=== PATIENT | male | born 1960 | race Caucasian/White ===

== ENCOUNTER → 2016-08-13 | Outpatient (CLI) | payer OTHER ==
--- NOTE | 2016-08-13 11:06 | CT ---
EXAMINATION TYPE: CT abdomen wo/w con DATE OF EXAM: 08/13/2016 7:56 AM COMPARISON: 12/20/2015 INDICATION: portal vein thrombosis DLP: 650.7 mGycm, Automated exposure control for dose reduction was used. CONTRAST: 100 mL of Omnipaque 300. Study performed with Oral Contrast TECHNIQUE: Axial images were obtained from above the diaphragm to the pubic rami in the axial plane a t 5 mm thick sections. Reconstructed images are reviewed on the computer in the coronal plane. FINDINGS: Limited CT sections are obtained the lung bases. The lung bases are clear. Small hiatal hernia is p resent. CT ABDOMEN: Thrombus within the portal vein is again evident. On delayed images contrast does pass ar ound this thrombus. The splenic vein appears thrombosed. Thrombus without obstruction appears to be w ithin the mesenteric vein. Liver: Normal Spleen: Markedly enlarged measuring 22 cm in craniocaudal dimension. This is stable. Pancreas: Normal Adrenal glands: The adrenal glands are normal. Gallbladder: Normal Kidneys: No masses are evident. No hydronephrosis is present. No cysts are present. Delayed images were obtained through the kidneys, which remain unremarkable. Aorta: Vascular calcification is within the aorta. Inferior vena cava: Normal. CT PELVIS: There is thickening of the ascending colon. Correlate for colitis. Incomplete distention with contras t. There are loops of bowel which are incompletely distended or lack oral contrast limiting their nehemiah luation. What appears to be the appendix is normal. IMPRESSIONS: 1. Portal vein partial thrombosis without complete obstruction. Findings are similar to December 2015. 2. Marked splenomegaly. 3. Small hiatal hernia. 4. Suspected colitis ascending colon. Mesenteric ischemia from venous thrombosis could be considered although the findings are similar to previous exam.
== END | disposition home or self-care (01) ==
LOC: RADCTMAIN 07:28
PROVIDERS: ATTEND Internal Medicine Hematology & Oncology
DX: I81 Portal vein thrombosis (principal)
CPT/HCPCS: 74170; Q9967

== ENCOUNTER → 2019-03-12 | Outpatient (CLI) | payer MEDICARE ==
[2019-03-12 16:13] LABS: Basophils % (A) 1 %; Eosinophils # (A) 0.1 k/uL (0-0.7); Eosinophils % (A) 2 %; HCT 33.6 % (39.0-53.0); HGB 10.4 gm/dL (13.0-17.5); Lymphocytes # (A) 0.3 k/uL (1.0-4.8); Lymphocytes % (A) 10 %; MCH 29.1 pg (25.0-35.0); MCHC 31.1 g/dL (31.0-37.0); MCV 93.7 fL (80.0-100.0); Mean Platelet Volume 7.3; Monocytes # (A) 0.3 k/uL (0-1.0); Monocytes % (A) 9 %; Neutrophils # (A) 2.3 k/uL (1.3-7.7); Neutrophils % (A) 75 %; RBC 3.58 m/uL (4.30-5.90); RDW 14.7 % (11.5-15.5); WBC 3.1 k/uL (3.8-10.6)
[2019-03-12 16:58] LABS: Platelet Count 42 k/uL (150-450)
[2019-03-13 01:26] LABS: African American GFR (CKD) 94.4 (60.0-200.0); Albumin 4.2 g/dL (3.80-4.90); Albumin/Globulin Ratio 1.5 (1.60-3.17); Anion Gap 9.9 mmol/L (4.00-12.00); Calcium 8.9 mg/dL (8.7-10.3); Carbon Dioxide 27.1 mmol/L (21.6-31.8); Globulin 2.8 g/dL (1.6-3.3); Potassium 4.7 mmol/L (3.5-5.5); Total Bilirubin 1.7 mg/dL (0.2-1.2)
== END | disposition home or self-care (01) ==
LOC: LABWHC1 14:27
PROVIDERS: ATTEND Internal Medicine Gastroenterology
DX: K70.30 Alcoholic cirrhosis of liver without ascites (principal); Z76.82 Awaiting organ transplant status
CPT/HCPCS: 36415; 80053; 82105; 85025

== ENCOUNTER → 2019-04-02 | Outpatient (CLI) | payer MEDICARE | END | disposition home or self-care (01) | LOC: LABWHC1 14:23 | PROVIDERS: ATTEND Internal Medicine Gastroenterology | DX: K74.60 Unspecified cirrhosis of liver (principal); K76.9 Liver disease, unspecified; Z76.82 Awaiting organ transplant status | CPT/HCPCS: 36415; 82105 ==

== ENCOUNTER 2022-06-15 09:02 | Inpatient (IN) | payer MEDICARE ==
[2022-06-15 09:19] LABS: Glucose,Whole Blood 125 mg/dL (70-110)
--- NOTE | 2022-06-15 09:24 | ED ---
Altered Mental Status HPI - General Chief Complaint: Altered Mental Status Stated Complaint: AMS,Dizziness Time Seen by Provider: 06/15/22 09:04 Source: family, EMS Mode of arrival: EMS Limitations: altered mental status - History of Present Illness Initial Comments: 61-year-old male patient with known history of alcohol abuse and chronic liver disease presents to the emergency department for evaluation of altered mental status. Family called EMS and they found him lying on the floor not responding appropriately. Patient is able to provide no history. EMS personnel state that he has been basically unresponsive since they picked him up. Family member at home states that he had blood drawn recently and was found to be anemic. They are unsure if he had any falls or injuries. Was able to obtain more history from . He has been showing signs of confusion over the last year. States over the last 3-4 days it has been significantly worse. He did have a fall out of bed this morning. He was not responding appropriately to her so she called 911. He has had evaluation at [facility] with Dr. Cordova and has been evaluated for Liver transplant and on the transplant list in the past. is not sure if he is on the list at this time. states his last alcohol use was 4-5 years ago. - Related Data Home Medications Medication Instructions Recorded Confirmed Pantoprazole Sodium 40 mg PO DAILY 03/30/14 11/03/19 Propranolol [Inderal] 5 mg PO TID 03/30/14 11/03/19 Spironolactone [Aldactone] 50 mg PO BID 03/30/14 11/03/19 buPROPion HCL [Wellbutrin XL] 300 mg PO DAILY 03/06/16 11/03/19 ALPRAZolam [Xanax] 1 PO TID 11/03/19 Lipase/Protease/Amylase [Creon Dr 2 PO TID 11/03/19 24,000 Units Capsule] Rifaximin [Xifaxan] 1 tab PO DAILY 11/03/19 11/03/19 Allergies Allergy/AdvReac Type Severity Reaction Status Date / Time Iodinated Contrast Media Allergy Swelling Verified 11/03/19 11:53 [Iodinated Contrast Media - IV Dye] shellfish derived [Shrimp] Allergy Unknown Verified 11/03/19 11:53 Review of Systems ROS Statement: Those systems with pertinent positive or pertinent negative responses have been documented in the HPI. ROS Other: All systems not noted in ROS Statement are negative. Past Medical History Past Medical History: GERD/Reflux, Liver Disease Additional Past Medical History / Comment(s): 12/20/15 Pt was admitted to [facility] ICU and found to have acute mesenteric ischemia and thrombosis of R hemicolon-he also had massive splenomegaly-he was transfered to [facility] and he states he is now on the liver transplant list. Other hx: anemia, thrombocytopenia, cirrhosis, hepatitis c stated was tx 3.5 years ago, esophageal varices with surgery, chronic diarrhea. History of Any Multi-Drug Resistant Organisms: None Reported Past Surgical History: Hernia Repair, Tonsillectomy Additional Past Surgical History / Comment(s): EGD's, esophageal banding(d/t esophageal varacies), cherelle inguinal hernia, colonoscopy-polyps removed were benign. Past Anesthesia/Blood Transfusion Reactions: No Reported Reaction Past Psychological History: Anxiety Smoking Status: Unknown if ever smoked Past Alcohol Use History: Abuse Past Drug Use History: Marijuana - Past Family History Mother Family Medical History: No Reported History Additional Family Medical History / Comment(s): Mother at the age of 92 yrs. Father Additional Family Medical History / Comment(s): smoked/drank had lung disease. Father at the age of 78yrs. General Exam Limitations: altered mental status General appearance: obtunded Head exam: Present: atraumatic, normocephalic, normal inspection Eye exam: Present: normal appearance, PERRL, EOMI, scleral icterus (Bilateral). Absent: conjunctival injection, periorbital swelling Neck exam: Present: normal inspection Respiratory exam: Present: normal lung sounds bilaterally. Absent: respiratory distress, wheezes, rales, rhonchi, stridor Cardiovascular Exam: Present: regular rate, normal rhythm, normal heart sounds. Absent: systolic murmur, diastolic murmur, rubs, gallop, clicks GI/Abdominal exam: Present: soft, normal bowel sounds. Absent: distended, tenderness, guarding, rebound, rigid Neurological exam: Present: altered, other (Patient not responding to verbal stimuli. Does respond to painful stimuli but words are unintelligible. ) Psychiatric exam: Present: normal affect, normal mood Skin exam: Present: warm, dry, intact, normal color. Absent: rash Course Vital Signs 06/15/22 06/15/2206/15/23 09:05 09:37 10:54 Temperature 97.5 F L Pulse Rate 65 64 70 Respiratory 16 18 18 Rate Blood Pressure 122/67 120/71 101/65 O2 Sat by Pulse 96 97 97 Oximetry - Reevaluation(s) Reevaluation #1: 06/15/22 10:30 Called [facility] transfer center to arrange transfer. Transfer required due to need for gastroenterology/hepatology and higher level of care. [facility] for a [facility]. Awaiting return call from [facility] physician. Reevaluation #2: 06/15/22 11:15 Dayton Craig called back, spoke to Dr. Ramos, he did accept the transfer to general medical unit. [facility] will call back with updates regarding bed assignment. Reevaluation #3: 06/15/22 14:[address] Wilson for consult and rounding while patient is holding in ER for transfer. Dr. Wilson believes the patient can be managed satisfactorily here in this hospital without gastroenterology coverage. He did recommend ICU admission and critical care consult. Dr. Wilson was consulted. He was down to evaluate the patient. He agrees if the patient cannot be transferred to [facility] today he would be better served in our ICU receiving treatment. [facility] would more than likely be a few days due to patient's COVID + status. Patient will remain here and be admitted to our ICU. Family is agreeable. Medical Decision Making - Medical Decision Making Was pt. sent in by a medical professional or institution (, PA, DEVELOPMENT OFFICER, urgent care, hospital, or usp...) When possible be specific @ -[No] Did you speak to anyone other than the patient for history (EMS, parent, family, police, friend...)? What history was obtained from this source @ -, EMS personnel. Obtained history of present illness previously documented. Did you review nursing and triage notes (agree or disagree)? Why? @ -[I reviewed and agree with nursing and triage notes] Were old charts reviewed (outside hosp., previous admission, EMS record, old EKG, old radiological studies, urgent care reports/EKG's, usp records)? Report findings @ -Reviewed labs obtained 06/11/22 Differential Diagnosis (chest pain, altered mental status, abdominal pain women, abdominal pain men, vaginal bleeding, weakness, fever, dyspnea, syncope, headache, dizziness, GI bleed, back pain, seizure, CVA, palpatations, mental health)? @ -Differential Altered Mental Status: Hypoglycemia, DKA, hypercapnia, ETOH, overdose, CO poisoning, trauma, myxedema coma, HTN encephalopathy, infection, encephalitis, psychosis, intercranial hemorrhage, hepatic encephalopathy, meningitis, CVA, this is not meant to be an all-inclusive list EKG interpreted by me (3pts min.). @ -[As above] X-rays interpreted by me (1pt min.). @ -[None done] CT interpreted by me (1pt min.). @ -As above. U/S interpreted by me (1pt. min.). @ -[None done] What testing was considered but not performed or refused? (CT, X-rays, U/S, labs)? Why? @ -[None] What meds were considered but not given or refused? Why? @ -[None] Did you discuss the management of the patient with other professionals (professionals i.e. , PA, DEVELOPMENT OFFICER, lab, RT, psych nurse, social sciences department chair, tax lawyer, teacher, correction officer head, rn case management)? Give summary @ -Discussed with my attending Dr. Jo. Dayton Craig accepting physician Dr. Ramos. [facility]. [facility], and Dr. Wilson account leader. Was smoking cessation discussed for >3mins.? @ -[No] Was critical care preformed (if so, how long)? @ -Yes, review of labs, evaluation of patient, vital signs, EKG. Consult with multiple members of health care team including multiple physicians and transfer team. Were there social determinants of health that impacted care today? How? (Homelessness, low income, unemployed, alcoholism, drug addiction, transportation, low edu. Level, literacy, decrease access to med. care, halfway, rehab)? @ -[No] Was there de-escalation of care discussed even if they declined (Discuss DNR or withdrawal of care, Hospice)? DNR status @ -[No] What co-morbidities impacted this encounter? (DM, HTN, Smoking, COPD, CAD, Cancer, CVA, ARF, Chemo, Hep., AIDS, mental health diagnosis, sleep apnea, mor bid obesity)? @ -Hepatitis C, Liver disease, Alcohol dependence in remission. Was patient admitted / discharged? Hospital course, mention meds given and route, prescriptions, significant lab abnormalities, going to OR and other pertinent info. @ 61-year-old male patient presented to the emergency via EMS for altered mental status. Patient does have history significant for alcoholic liver disease, last drink 4-5 years ago. Physical examination did reveal scleral icterus. Altered mental status, responsive to painful stimuli only. Labs reviewed and did reveal INR 1.6, ammonia 266, white blood cell count 1.4. He did test positive for Covid. Symptoms are consistent with hepatic encephalopathy. Patient was given 200gm lactulose via retention enema. We do not have gastroenterology coverage at this time. Patient does see Dr. Cordova at [facility] and has been previously evaluated by their transplant team. Transfer has been initiated. Update: Spoke to Dr. Wilson for consult and rounding while patient is holding in ER for transfer. Dr. Wilson believes the patient can be managed satisfactorily here in this hospital without gastroenterology coverage. He did recommend ICU admission and critical care consult. Dr. Wilson was consulted. He was down to evaluate the patient. He agrees if the patient cannot be transferred to [facility] today he would be better served in our ICU receiving treatment. [facility] states it would more than likely be a few days due to patient's COVID + status. Patient will remain here and be admitted to our ICU. Family is agreeable. Undiagnosed new problem with uncertain prognosis? @ -[No] Drug Therapy requiring intensive monitoring for toxicity (Heparin, Nitro, Insulin, Cardizem)? @ -[No] Were any procedures done? @ -Retention enema administered by RN. Diagnosis/symptom? @ -Hepatic Encephalopathy, COVID-19 infection, Altered Mental Status. Acute, or Chronic, or Acute on Chronic? @ - Acute Uncomplicated (without systemic symptoms) or Complicated (systemic symptoms)? @ -Complicated Side effects of treatment? @ -[No] Exacerbation, Progression, or Severe Exacerbation? @ -[No] Poses a threat to life or bodily function? How? (Chest pain, USA, PA, pneumonia, PE, COPD, DKA, ARF, appy, cholecystitis, CVA, Diverticulitis, Homicidal, Suicidal, threat to staff... and all critical care pts) @ -Yes. Encephalopathy. - Lab Data Result diagrams: 06/15/22 09:14 06/15/22 09:14 Lab Results 06/15/22 06/15/22 06/15/22 Range/Units 09:14 09:14 09:14 WBC 1.4 L* (3.8-10.6) k/uL RBC 2.90 L (4.30-5.90) m/uL Hgb 9.7 L (13.0-17.5) gm/dL Hct 27.9 L (39.0-53.0) % MCV 96.1 (80.0-100.0) fL MCH 33.3 (25.0-35.0) pg MCHC 34.7 (31.0-37.0) g/dL RDW 14.5 (11.5-15.5) % Plt Count 20 L (150-450) k/uL MPV 9.1 Neutrophils % 63 % Lymphocytes % 23 % Monocytes % 8 % Eosinophils % 2 % Basophils % 1 % Neutrophils # 0.9 L (1.3-7.7) k/uL Lymphocytes # 0.3 L (1.0-4.8) k/uL Monocytes # 0.1 (0-1.0) k/uL Eosinophils # 0.0 (0-0.7) k/uL Basophils # 0.0 (0-0.2) k/uL Manual Slide Review Performed Poikilocytosis Slight PT 15.9 H (9.0-12.0) sec INR 1.6 H (<1.2) APTT 30.8 H (22.0-30.0) sec Sodium 138 (137-145) mmol/L Potassium 3.8 (3.5-5.1) mmol/L Chloride 107 (98-107) mmol/L Carbon Dioxide 28 (22-30) mmol/L Anion Gap 3 mmol/L BUN 19 (9-20) mg/dL Creatinine 0.82 (0.66-1.25) mg/dL Est GFR (CKD-EPI)AfAm >90 (>60 ml/min/1.73 sqM) Est GFR (CKD-EPI)NonAf >90 (>60 ml/min/1.73 sqM) Glucose 119 H (74-99) mg/dL POC Glucose (mg/dL) (70-110) mg/dL POC Glu Gyro Compass Tester ID Plasma Lactic Acid Devang (0.7-2.0) mmol/L Calcium 7.4 L (8.4-10.2) mg/dL Total Bilirubin 2.2 H (0.2-1.3) mg/dL AST 29 (17-59) U/L ALT 26 (4-49) U/L Alkaline Phosphatase 99 (38-126) U/L Ammonia (<30) umol/L Troponin I (0.000-0.034) ng/mL Total Protein 5.9 L (6.3-8.2) g/dL Albumin 2.8 L (3.5-5.0) g/dL Urine Color Urine Appearance (Clear) Urine pH (5.0-8.0) Ur Specific Elma (1.001-1.035) Urine Protein (Negative) Urine Glucose (UA) (Negative) Urine Ketones (Negative) Urine Blood (Negative) Urine Nitrite (Negative) Urine Bilirubin (Negative) Urine Urobilinogen (<2.0) mg/dL Ur Leukocyte Esterase (Negative) Urine Opiates Screen (NotDetected) Ur Oxycodone Screen (NotDetected) Urine Methadone Screen (NotDetected) Ur Propoxyphene Screen (NotDetected) Ur Barbiturates Screen (NotDetected) U Tricyclic Antidepress (NotDetected) Ur Phencyclidine Scrn (NotDetected) Ur Amphetamines Screen (NotDetected) U Methamphetamines Scrn (NotDetected) U Benzodiazepines Scrn (NotDetected) Urine Cocaine Screen (NotDetected) U Marijuana (THC) Screen (NotDetected) Serum Alcohol <10 mg/dL Coronavirus (PCR) (Not Detectd) 06/15/22 06/15/22 06/15/22 Range/Units 09:14 09:14 09:14 WBC (3.8-10.6) k/uL RBC (4.30-5.90) m/uL Hgb (13.0-17.5) gm/dL Hct (39.0-53.0) % MCV (80.0-100.0) fL MCH (25.0-35.0) pg MCHC (31.0-37.0) g/dL RDW (11.5-15.5) % Plt Count (150-450) k/uL MPV Neutrophils % % Lymphocytes % % Monocytes % % Eosinophils % % Basophils % % Neutrophils # (1.3-7.7) k/uL Lymphocytes # (1.0-4.8) k/uL Monocytes # (0-1.0) k/uL Eosinophils # (0-0.7) k/uL Basophils # (0-0.2) k/uL Manual Slide Review Poikilocytosis PT (9.0-12.0) sec INR (<1.2) APTT (22.0-30.0) sec Sodium (137-145) mmol/L Potassium (3.5-5.1) mmol/L Chloride (98-107) mmol/L Carbon Dioxide (22-30) mmol/L Anion Gap mmol/L BUN (9-20) mg/dL Creatinine (0.66-1.25) mg/dL Est GFR (CKD-EPI)AfAm (>60 ml/min/1.73 sqM) Est GFR (CKD-EPI)NonAf (>60 ml/min/1.73 sqM) Glucose (74-99) mg/dL POC Glucose (mg/dL) (70-110) mg/dL POC Glu Gyro Compass Tester ID Plasma Lactic Acid Devang 1.7 (0.7-2.0) mmol/L Calcium (8.4-10.2) mg/dL Total Bilirubin (0.2-1.3) mg/dL AST (17-59) U/L ALT (4-49) U/L Alkaline Phosphatase (38-126) U/L Ammonia 266 H (<30) umol/L Troponin I <0.012 (0.000-0.034) ng/mL Total Protein (6.3-8.2) g/dL Albumin (3.5-5.0) g/dL Urine Color Urine Appearance (Clear) Urine pH (5.0-8.0) Ur Specific Elma (1.001-1.035) Urine Protein (Negative) Urine Glucose (UA) (Negative) Urine Ketones (Negative) Urine Blood (Negative) Urine Nitrite (Negative) Urine Bilirubin (Negative) Urine Urobilinogen (<2.0) mg/dL Ur Leukocyte Esterase (Negative) Urine Opiates Screen (NotDetected) Ur Oxycodone Screen (NotDetected) Urine Methadone Screen (NotDetected) Ur Propoxyphene Screen (NotDetected) Ur Barbiturates Screen (NotDetected) U Tricyclic Antidepress (NotDetected) Ur Phencyclidine Scrn (NotDetected) Ur Amphetamines Screen (NotDetected) U Methamphetamines Scrn (NotDetected) U Benzodiazepines Scrn (NotDetected) Urine Cocaine Screen (NotDetected) U Marijuana (THC) Screen (NotDetected) Serum Alcohol mg/dL Coronavirus (PCR) (Not Detectd) 06/15/22 06/15/22 06/15/22 Range/Units 09:17 09:17 10:54 WBC (3.8-10.6) k/uL RBC (4.30-5.90) m/uL Hgb (13.0-17.5) gm/dL Hct (39.0-53.0) % MCV (80.0-100.0) fL MCH (25.0-35.0) pg MCHC (31.0-37.0) g/dL RDW (11.5-15.5) % Plt Count (150-450) k/uL MPV Neutrophils % % Lymphocytes % % Monocytes % % Eosinophils % % Basophils % % Neutrophils # (1.3-7.7) k/uL Lymphocytes # (1.0-4.8) k/uL Monocytes # (0-1.0) k/uL Eosinophils # (0-0.7) k/uL Basophils # (0-0.2) k/uL Manual Slide Review Poikilocytosis PT (9.0-12.0) sec INR (<1.2) APTT (22.0-30.0) sec Sodium (137-145) mmol/L Potassium (3.5-5.1) mmol/L Chloride (98-107) mmol/L Carbon Dioxide (22-30) mmol/L Anion Gap mmol/L BUN (9-20) mg/dL Creatinine (0.66-1.25) mg/dL Est GFR (CKD-EPI)AfAm (>60 ml/min/1.73 sqM) Est GFR (CKD-EPI)NonAf (>60 ml/min/1.73 sqM) Glucose (74-99) mg/dL POC Glucose (mg/dL) 125 H (70-110) mg/dL POC Glu Gyro Compass Tester ID Dyllan Tierney Plasma Lactic Acid Devang (0.7-2.0) mmol/L Calcium (8.4-10.2) mg/dL Total Bilirubin (0.2-1.3) mg/dL AST (17-59) U/L ALT (4-49) U/L Alkaline Phosphatase (38-126) U/L Ammonia (<30) umol/L Troponin I (0.000-0.034) ng/mL Total Protein (6.3-8.2) g/dL Albumin (3.5-5.0) g/dL Urine Color Yellow Urine Appearance Clear (Clear) Urine pH 6.5 (5.0-8.0) Ur Specific Elma 1.014 (1.001-1.035) Urine Protein Negative (Negative) Urine Glucose (UA) Negative (Negative) Urine Ketones Negative (Negative) Urine Blood Negative (Negative) Urine Nitrite Negative (Negative) Urine Bilirubin Negative (Negative) Urine Urobilinogen >12.0 (<2.0) mg/dL Ur Leukocyte Esterase Negative (Negative) Urine Opiates Screen Not Detected (NotDetected) Ur Oxycodone Screen Not Detected (NotDetected) Urine Methadone Screen Not Detected (NotDetected) Ur Propoxyphene Screen Not Detected (NotDetected) Ur Barbiturates Screen Not Detected (NotDetected) U Tricyclic Antidepress Not Detected (NotDetected) Ur Phencyclidine Scrn Not Detected (NotDetected) Ur Amphetamines Screen Not Detected (NotDetected) U Methamphetamines Scrn Not Detected (NotDetected) U Benzodiazepines Scrn Detected H (NotDetected) Urine Cocaine Screen Not Detected (NotDetected) U Marijuana (THC) Screen Not Detected (NotDetected) Serum Alcohol mg/dL Coronavirus (PCR) Detected A (Not Detectd) - EKG Data -: EKG Interpreted by Me EKG Comments: EKG was obtained at 0906 shows sinus rhythm with right bundle branch block, ventricular rate is 60, MT interval 164, QRS duration 165, QTc 528, QTC 529. - Radiology Data Radiology results: report reviewed, image reviewed CT brain and C-spine was obtained. Report was reviewed in its entirety. Impression by Dr. Kirkland shows no acute intracranial process. No evidence of cervical spine fracture. Mild multilevel degenerative disc disease. Predominantly right-sided paranasal sinus disease. Disposition Clinical Impression: Hepatic encephalopathy, COVID-19, Altered mental status Disposition: ADMITTED IP TO THIS [facility] Condition: Serious Referrals: None,Stated [REFERRING] - 1-2 days Decision to Admit Reason: Admit from EC Decision Date: 06/15/22 Decision Time: 14:47
[2022-06-15 09:40] LABS: ALT 26 U/L (4-49); AST 29 U/L (17-59); African American GFR (CKD) >90 (>60 ml/min/1.73 sqM); Albumin 2.8 g/dL (3.5-5.0); Alcohol <10 mg/dL; Alkaline Phosphatase 99 U/L (38-126); Anion Gap 3 mmol/L; Blood Urea Nitrogen 19 mg/dL (9-20); Calcium 7.4 mg/dL (8.4-10.2); Carbon Dioxide 28 mmol/L (22-30); Chloride 107 mmol/L (98-107); Glucose 119 mg/dL (74-99); Non-African American GFR(CKD) >90 (>60 ml/min/1.73 sqM); Potassium 3.8 mmol/L (3.5-5.1); Sodium 138 mmol/L (137-145); Total Bilirubin 2.2 mg/dL (0.2-1.3); Total Protein 5.9 g/dL (6.3-8.2)
[2022-06-15 09:41] LABS: INR 1.6 (<1.2); Partial Thromboplastin Time 30.8 sec (22.0-30.0); Prothrombin Time 15.9 sec (9.0-12.0)
[2022-06-15 09:42] LABS: Basophils % (A) 1 %; Eosinophils % (A) 2 %; HCT 27.9 % (39.0-53.0); HGB 9.7 gm/dL (13.0-17.5); Lymphocytes # (A) 0.3 k/uL (1.0-4.8); Lymphocytes % (A) 23 %; MCH 33.3 pg (25.0-35.0); MCHC 34.7 g/dL (31.0-37.0); MCV 96.1 fL (80.0-100.0); Mean Platelet Volume 9.1; Monocytes # (A) 0.1 k/uL (0-1.0); Monocytes % (A) 8 %; Neutrophils # (A) 0.9 k/uL (1.3-7.7); Neutrophils % (A) 63 %; Poikilocytosis Slight; RDW 14.5 % (11.5-15.5)
[2022-06-15 09:46] LABS: WBC 1.4 k/uL (3.8-10.6)
[2022-06-15] MEDS ORDERED: LACTULOSE 200 GM/300 ML (FROM 1/2 GAL JUG) RECTAL ONE (10:00)
--- NOTE | 2022-06-15 10:05 | CT ---
EXAMINATION TYPE: CT brain cspine wo con CT DLP: 1294.3 mGycm, Automated exposure control for dose reduction was used. DATE OF EXAM: 06/15/2022 9:41 AM COMPARISON: None. CLINICAL INDICATION:Male, 61 years old with history of AMS; Found on floor; unresponsive TECHNIQUE: Brain: Multiple axial CT images of the brain were obtained without IV contrast. Cspine: Axial CT images from the skull base to the inferior aspect of T2 we obtained without intraven ous contrast. Coronal and sagittal reformatted images were also reviewed. FINDINGS: Brain: Extra-axial spaces: No abnormal extra-axial fluid collections. Ventricular system: Within normal limits Cerebral parenchyma: No acute intraparenchymal hemorrhage or mass effect. The tomlinson-white junction is well differentiated. Cerebellum: Unremarkable. Mass effect: No evidence of midline shift. Intracranial vasculature: Atherosclerotic calcifications of the intracranial vessels. Soft tissues: Normal. Calvarium/osseous structures: No depressed skull fracture. Paranasal sinuses and mastoid air cells: Moderate scattered mucosal thickening and or secretions most pronounced on the right. Visualized orbits: Orbital contents are intact. Cervical spine: Fracture: None. Osseous structures: Unremarkable Vertebral alignment: Within normal limits. Spinal canal/Neural Foramina: No evidence of significant spinal canal narrowing. No evidence for sign ificant neural foraminal stenosis. Neck soft tissues: Prevertebral soft tissues are within normal limits. Other: The airway is patent. 2 mild paraseptal emphysema changes and centrilobular emphysema changes. IMPRESSION: 1. No acute intracranial process. 2. No evidence of cervical spine fracture. 3. Mild multilevel degenerative disc disease. 4. Predominantly right-sided paranasal sinus disease.
[2022-06-15 10:15] LABS: Platelet Count 20 k/uL (150-450)
[2022-06-15 10:19] LABS: Appearance,Urine Clear (Clear); Bilirubin,Urine Negative (Negative); Blood,Urine Negative (Negative); Color,Urine Yellow; Glucose,Urine (UA) Negative (Negative); Ketones,Urine Negative (Negative); Leukocyte Esterase,Urine Negative (Negative); Nitrite,Urine Negative (Negative); PH, Urine 6.5 (5.0-8.0); Protein,Urine Negative (Negative); Specific Gravity,Urine 1.014 (1.001-1.035); Urobilinogen,Urine >12.0 mg/dL (<2.0)
[2022-06-15 10:26] LABS: Amphetamine Screen,Urine Not Detected (NotDetected); Barbiturate Screen,Urine Not Detected (NotDetected); Benzodiazepines Screen,Urine Detected (NotDetected); Cocaine Screen,Urine Not Detected (NotDetected); Methadone Screen, Urine Not Detected (NotDetected); Opiate Screen,Urine Not Detected (NotDetected); Oxycodone Screen, Urine Not Detected (NotDetected); Phencyclidine Screen,Urine Not Detected (NotDetected); Tricyclic Antidepressant,Urine Not Detected (NotDetected); Urn Cannabinoid Scrn Not Detected (NotDetected)
[2022-06-15] MEDS ORDERED: NALOXONE 0.4 MG/ML 1 ML VIAL IV PRN (14:48)
--- NOTE | 2022-06-15 15:19 | XR ---
EXAMINATION TYPE: XR chest 1V DATE OF EXAM: 06/15/2022 COMPARISON: 03/06/2016 HISTORY: Altered mental status TECHNIQUE: Single view FINDINGS: Heart and mediastinum are normal. Lungs are clear. Diaphragm is normal. Bony thorax is inta ct. There are chest leads. IMPRESSION: No active cardiopulmonary disease. No change.
--- NOTE | 2022-06-15 15:24 | P.CNPUL ---
History of Present Illness Consult date: 06/15/22 Requesting physician: Jeannette Wilson Reason for consult: other (Critical care management) Chief complaint: Altered mental status, fall History of present illness: This is a 61-year-old male patient with a known history of acute alcohol abuse having quit approximately 2 years ago according to his sister who is at the bedside and provides the information. He has a history hepatic encephalopathy and follows at [facility] with Dr. Cordova for possible liver transplant. He had a previous TIPS procedure there 3-4 years ago. He has a known history of esophageal varices and had previously been seen here by Dr. Nick for esophageal ligation last time performed in 2016. Apparently the patient has had increasing confusion over the last 3-4 days. They found him on the floor this morning unresponsive. He had earlier fallen out of his bed. He was brought in by EMS he states he had been unresponsive since that picked him up. Computed tomography scan of the head and cervical spine revealed no acute intracranial process. No evidence of cervical spine fracture. Mild multilevel degenerative chest disease. White count 1.4. Hemoglobin 9.7. Platelet count 20,000. INR 1.6. Sodium 138. Potassium 3.8. Bicarb 28. BUN 19. Creatinine 0.82. Glucose 119. Calcium 7.4. Total bilirubin 2.2. AST 29. ALT 26. Ammonia level CCLXVI. Albumin 2.8. Urinalysis clear. Urine drug screen positive for benzodiazepines. Serum alcohol less than 10. Teixeira virus by PCR positive. The plan is to admit him to the intensive care unit and we are consulted for the same. He is seen in the emergency department. He arouses to deep sternal rub only. He has received a retention enema of lactulose 200 g once thus far. He is maintaining good O2 saturations in the 90s on room air. He is afebrile. Hemodynamically stable. Receiving normal saline at 75 ML's per hour. Initiated on IV Protonix. Nasogastric tube initiated for lactulose 30 g 4 times a day per ER order. The patient is on rifaximin, Aldactone, Creon, propanolol in the outpatient setting. He was initially to be transferred to [facility] but due to his CoVID positive status it might be several da ys before accepted according to the ER provider. He'll be admitted to our ICU for now. Review of Systems ROS unobtainable: due to mental status Past Medical History Past Medical History: GERD/Reflux, Liver Disease Additional Past Medical History / Comment(s): 12/20/15 Pt was admitted to [facility] and found to have acute mesenteric ischemia and thrombosis of R hemicolon-he also had massive splenomegaly-he was transfered to [facility] and he states he is now on the liver transplant list. Other hx: anemia, thrombocytopenia, cirrhosis, hepatitis c stated was tx 3.5 years ago, esophageal varices with surgery, chronic diarrhea. History of Any Multi-Drug Resistant Organisms: None Reported Past Surgical History: Hernia Repair, Tonsillectomy Additional Past Surgical History / Comment(s): EGD's, esophageal banding(d/t esophageal varacies), cherelle inguinal hernia, colonoscopy-polyps removed were benign. Past Anesthesia/Blood Transfusion Reactions: No Reported Reaction Past Psychological History: Anxiety Smoking Status: Unknown if ever smoked Past Alcohol Use History: Abuse Past Drug Use History: Marijuana - Past Family History Mother Family Medical History: No Reported History Additional Family Medical History / Comment(s): Mother at the age of 92 yrs. Father Additional Family Medical History / Comment(s): smoked/drank had lung disease. Father at the age of 78yrs. Medications and Allergies Home Medications Medication Instructions Recorded Confirmed Type Pantoprazole Sodium 40 mg PO DAILY 03/30/14 11/03/19 History Propranolol [Inderal] 5 mg PO TID 03/30/14 11/03/19 History Spironolactone [Aldactone] 50 mg PO BID 03/30/14 11/03/19 History buPROPion HCL [Wellbutrin XL] 300 mg PO DAILY 03/06/16 11/03/19 History ALPRAZolam [Xanax] 1 PO TID 11/03/19 History Lipase/Protease/Amylase [Creon Dr 2 PO TID 11/03/19 History 24,000 Units Capsule] Rifaximin [Xifaxan] 1 tab PO DAILY 11/03/19 11/03/19 History Allergies Allergy/AdvReac Type Severity Reaction Status Date / Time Iodinated Contrast Media Allergy Swelling Verified 11/03/19 11:53 [Iodinated Contrast Media - IV Dye] shellfish derived [Shrimp] Allergy Unknown Verified 11/03/19 11:53 Physical Exam Vitals: Vital Signs Temp Pulse Resp BP Pulse Ox 06/15/22 10:54 70 18 101/65 97 06/15/22 09:37 64 18 120/71 97 06/15/22 09:05 97.5 F L 65 16 122/67 96 Intake and Output 06/14/22 06/15/22 06/15/22 22:59 06:59 14:59 Other: Weight 77.111 kg GENERAL EXAM: Obtunded, unresponsive pale 61-year-old male, on room air, in no acute distress. HEAD: Normocephalic. EYES: Normal reaction of pupils, equal size. NOSE: Clear with pink turbinates. THROAT: No erythema or exudates. NECK: No masses, no JVD. CHEST: No chest wall deformity. LUNGS: Equal air entry with no crackles, wheeze, rhonchi or dullness. CVS: S1 and S2 normal with no audible murmur, regular rhythm. ABDOMEN: Positive hepatomegaly, mild abdominal distention, normal bowel sounds, no guarding or rigidity. SPINE: No scoliosis or deformity SKIN: No rashes CENTRAL NERVOUS SYSTEM: Unresponsive, tone is normal in all 4 extremities. EXTREMITIES: There is no peripheral edema. No clubbing, no cyanosis. Peripheral pulses are intact. Results - Laboratory Findings CBC and BMP: 06/15/22 09:14 06/15/22 09:14 PT/INR, D-dimer PT 15.9 sec (9.0-12.0) H 06/15/22 09:14 INR 1.6 (<1.2) H 06/15/22 09:14 Abnormal lab findings: Abnormal Labs 06/15/22 06/15/22 06/15/22 09:14 09:14 09:14 WBC 1.4 L* RBC 2.90 L Hgb 9.7 L Hct 27.9 L Plt Count 20 L Neutrophils # 0.9 L Lymphocytes # 0.3 L PT 15.9 H INR 1.6 H APTT 30.8 H Glucose 119 H POC Glucose (mg/dL) Calcium 7.4 L Total Bilirubin 2.2 H Ammonia Total Protein 5.9 L Albumin 2.8 L U Benzodiazepines Scrn Coronavirus (PCR) 06/15/22 06/15/22 06/15/22 09:14 09:17 09:17 WBC RBC Hgb Hct Plt Count Neutrophils # Lymphocytes # PT INR APTT Glucose POC Glucose (mg/dL) 125 H Calcium Total Bilirubin Ammonia 266 H Total Protein Albumin U Benzodiazepines Scrn Detected H Coronavirus (PCR) 06/15/22 10:54 WBC RBC Hgb Hct Plt Count Neutrophils # Lymphocytes # PT INR APTT Glucose POC Glucose (mg/dL) Calcium Total Bilirubin Ammonia Total Protein Albumin U Benzodiazepines Scrn Coronavirus (PCR) Detected A Assessment and Plan Assessment: Altered mental status suspect secondary to hyperammonemia. Current level 266. Received a lactulose retention enema 1 Acute on chronic hyperammonemia secondary to liver failure. Maintained on rifaximin in the outpatient setting Acute COVID-19 infection Cirrhosis and chronic liver failure secondary to alcohol abuse, hepatitis C. Follows with Dr. 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 with massive splenomegaly and transferred to [facility] in December 2015 History of esophageal varices with ligation here in November of 2015 History of chronic pancreatitis and suspected malabsorption syndrome maintained on Creon in the outpatient setting History of anxiety/depression History of marijuana use Former smoker Plan: The patient was seen and evaluated Medications and labs reviewed Obtain a chest x-ray Currently on room air Resume his rifaximin Continue lactulose Continue to follow ammonia levels Plan was to transfer to [facility] Patient is CoVID positive and they state it will be a few days Admit to our ICU for closer monitoring We will continue to follow and make further recommendations based on his clinical status I have personally seen and examined the patient, performed the documentation and the assessment and plan as written. Number of minutes spent on the visit: 20.
[2022-06-15] MEDS: SODIUM CHLORIDE 0.9% 1,000 ML IV SCH (15:38)
[2022-06-15 16:39] LABS: Glucose,Whole Blood 141 mg/dL (70-110)
--- NOTE | 2022-06-15 16:56 | P.HPIM ---
History of Present Illness 61-year-old male with history of alcoholic cirrhosis came in with complaints of increasing confusion patient is a liver transplant list. Patient had previous TIPS procedure because of which patient doesn't have much of ascites with the is found to have severe hepatic encephalopathy with a highly elevated ammonia level of around 220. Patient had history of esophageal varices which were banded in the past. Patient received the lactulose enema patient the is on rifaximin at home which he doesn't take and regular basis and highly noncompliant. Patient does take Xanax REVIEW OF SYSTEMS: Patient is confused history is obtained from his PHYSICAL EXAMINATION: GENERAL: The patient is alert and oriented x0, not in any acute distress. Well developed, well nourished. HEENT: Pupils are round and equally reacting to light. EOMI. No scleral icterus. No conjunctival pallor. Normocephalic, atraumatic. No pharyngeal erythema. No thyromegaly. CARDIOVASCULAR: S1 and S2 present. No murmurs, rubs, or gallops. PULMONARY: Chest is clear to auscultation, no wheezing or crackles. ABDOMEN: Soft, mild abdominal distention with minimal ascites normoactive bowel sounds. No palpable organomegaly. MUSCULOSKELETAL: No joint swelling or deformity. EXTREMITIES: No cyanosis, clubbing, or pedal edema. NEUROLOGICAL: Severely encephalopathic with asterixis SKIN: No rashes. Assessment and plan -Altered mental status, secondary to hepatic encephalopathy patient will be resumed on rifaximin and continue with lactulose, because of high a level of ammonia and symptoms patient is being admitted to ICU at this time -COVID-19 infection -Alcoholic cirrhosis patient is on liver transplant list at this time - pancytopenia secondary to splenomegaly and cirrhosis -Coagulopathy the secondary to chronic liver disease -Anxiety disorder and depression DVT prophylaxis: Patient is partially anticoagulated secondary to liver disease Past Medical History Past Medical History: GERD/Reflux, Liver Disease Additional Past Medical History / Comment(s): 12/20/15 Pt was admitted to [facility] ICU and found to have acute mesenteric ischemia and thrombosis of R hemicolon-he also had massive splenomegaly-he was transfered to [facility] and he states he is now on the liver transplant list. Other hx: anemia, thrombocytopenia, cirrhosis, hepatitis c stated was tx 3.5 years ago, esophageal varices with surgery, chronic diarrhea. History of Any Multi-Drug Resistant Organisms: None Reported Past Surgical History: Hernia Repair, Tonsillectomy Additional Past Surgical History / Comment(s): EGD's, esophageal banding(d/t esophageal varacies), cherelle inguinal hernia, colonoscopy-polyps removed were benign. Past Anesthesia/Blood Transfusion Reactions: No Reported Reaction Past Psychological History: Anxiety Smoking Status: Unknown if ever smoked Past Alcohol Use History: Abuse Past Drug Use History: Marijuana - Past Family History Mother Family Medical History: No Reported History Additional Family Medical History / Comment(s): Mother at the age of 92 yrs. Father Additional Family Medical History / Comment(s): smoked/drank had lung disease. Father at the age of 78yrs. Medications and Allergies Home Medications Medication Instructions Recorded Confirmed Type Pantoprazole Sodium 40 mg PO DAILY 03/30/14 06/15/22 History Propranolol [Inderal] 10 mg PO BID 03/30/14 06/15/22 History Spironolactone [Aldactone] 50 mg PO BID 03/30/14 06/15/22 History buPROPion HCL [Wellbutrin XL] 300 mg PO DAILY 03/06/16 06/15/22 History ALPRAZolam [Xanax] 0.5 mg PO TID PRN 11/03/19 06/15/22 History Rifaximin [Xifaxan] 550 mg PO BID 11/03/19 06/15/22 History Furosemide [Lasix] 40 mg PO DAILY 06/15/22 06/15/22 History Lipase/Protease/Amylase [Creon Dr 2 cap PO TID 06/15/22 06/15/22 History 36,000 Unit Capsule] Allergies Allergy/AdvReac Type Severity Reaction Status Date / Time Iodinated Contrast Media Allergy Swelling Verified 06/15/22 15:22 [Iodinated Contrast Media - IV Dye] shellfish derived [Shrimp] Allergy Unknown Verified 06/15/22 15:22 Physical Exam Vitals: Vital Signs Temp Pulse Resp BP Pulse Ox 06/15/22 16:23 98.6 F 74 18 115/67 97 06/15/22 15:00 77 18 114/68 98 06/15/22 14:00 73 18 114/66 97 06/15/22 13:00 79 18 117/66 97 06/15/22 12:00 71 18 113/65 98 06/15/22 10:54 70 18 101/65 97 06/15/22 09:37 64 18 120/71 97 06/15/22 09:05 97.5 F L 65 16 122/67 96 Intake and Output 06/15/22 06/15/22 06/15/22 06:59 14:59 22:59 Output Total 100 Balance -100 Output: Urine 100 Uretheral (Brewer) 100 Other: Weight 77.111 kg Results CBC & Chem 7: 06/15/22 09:14 06/15/22 09:14 Labs: Abnormal Lab Results - Last 24 Hours (Table) 06/15/22 06/15/22 06/15/22 Range/Units 09:14 09:14 09:14 WBC 1.4 L* (3.8-10.6) k/uL RBC 2.90 L (4.30-5.90) m/uL Hgb 9.7 L (13.0-17.5) gm/dL Hct 27.9 L (39.0-53.0) % Plt Count 20 L (150-450) k/uL Neutrophils # 0.9 L (1.3-7.7) k/uL Lymphocytes # 0.3 L (1.0-4.8) k/uL PT 15.9 H (9.0-12.0) sec INR 1.6 H (<1.2) APTT 30.8 H (22.0-30.0) sec Glucose 119 H (74-99) mg/dL POC Glucose (mg/dL) (70-110) mg/dL Calcium 7.4 L (8.4-10.2) mg/dL Total Bilirubin 2.2 H (0.2-1.3) mg/dL Ammonia (<30) umol/L Total Protein 5.9 L (6.3-8.2) g/dL Albumin 2.8 L (3.5-5.0) g/dL U Benzodiazepines Scrn (NotDetected) Coronavirus (PCR) (Not Detectd) 06/15/22 06/15/22 06/15/22 Range/Units 09:14 09:17 09:17 WBC (3.8-10.6) k/uL RBC (4.30-5.90) m/uL Hgb (13.0-17.5) gm/dL Hct (39.0-53.0) % Plt Count (150-450) k/uL Neutrophils # (1.3-7.7) k/uL Lymphocytes # (1.0-4.8) k/uL PT (9.0-12.0) sec INR (<1.2) APTT (22.0-30.0) sec Glucose (74-99) mg/dL POC Glucose (mg/dL) 125 H (70-110) mg/dL Calcium (8.4-10.2) mg/dL Total Bilirubin (0.2-1.3) mg/dL Ammonia 266 H (<30) umol/L Total Protein (6.3-8.2) g/dL Albumin (3.5-5.0) g/dL U Benzodiazepines Scrn Detected H (NotDetected) Coronavirus (PCR) (Not Detectd) 06/15/22 06/15/22 Range/Units 10:54 16:37 WBC (3.8-10.6) k/uL RBC (4.30-5.90) m/uL Hgb (13.0-17.5) gm/dL Hct (39.0-53.0) % Plt Count (150-450) k/uL Neutrophils # (1.3-7.7) k/uL Lymphocytes # (1.0-4.8) k/uL PT (9.0-12.0) sec INR (<1.2) APTT (22.0-30.0) sec Glucose (74-99) mg/dL POC Glucose (mg/dL) 141 H (70-110) mg/dL Calcium (8.4-10.2) mg/dL Total Bilirubin (0.2-1.3) mg/dL Ammonia (<30) umol/L Total Protein (6.3-8.2) g/dL Albumin (3.5-5.0) g/dL U Benzodiazepines Scrn (NotDetected) Coronavirus (PCR) Detected A (Not Detectd)
[2022-06-15] MEDS: LACTULOSE 20 GM/30 ML CUP NG-TUBE SCH ×2 (17:18→21:10)
[2022-06-15] MEDS: PROPRANOLOL 10 MG TAB PO SCH (20:41)
[2022-06-15] MEDS: RIFAXIMIN 550 MG TABLET PO SCH (20:41)
[2022-06-16] MEDS: SODIUM CHLORIDE 0.9% 1,000 ML IV SCH (03:38)
[2022-06-16 06:08] LABS: HCT 29.1 % (39.0-53.0); HGB 9.9 gm/dL (13.0-17.5); MCH 33.6 pg (25.0-35.0); MCHC 34.2 g/dL (31.0-37.0); MCV 98.4 fL (80.0-100.0); Mean Platelet Volume 9.2; Poikilocytosis Slight; RBC 2.96 m/uL (4.30-5.90); RDW 14.6 % (11.5-15.5); WBC 2.9 k/uL (3.8-10.6)
[2022-06-16 06:10] LABS: Platelet Count 20 k/uL (150-450)
[2022-06-16 06:18] LABS: African American GFR (CKD) >90 (>60 ml/min/1.73 sqM); Anion Gap 4 mmol/L; Blood Urea Nitrogen 17 mg/dL (9-20); Calcium 7.7 mg/dL (8.4-10.2); Carbon Dioxide 23 mmol/L (22-30); Chloride 113 mmol/L (98-107); Glucose 103 mg/dL (74-99); Non-African American GFR(CKD) >90 (>60 ml/min/1.73 sqM); Potassium 3.3 mmol/L (3.5-5.1); Sodium 140 mmol/L (137-145)
[2022-06-16] MEDS ORDERED: Potassium Replacement Protocol 1 EACH MISC MISCELLANE PRN (06:41)
[2022-06-16] MEDS: POTASSIUM BICARBONATE/CIT AC 20 MEQ TABLET.EFF NG-TUBE SCH ×2 (06:55→08:08)
[2022-06-16] MEDS: LACTULOSE 20 GM/30 ML CUP NG-TUBE SCH ×2 (08:08→14:15)
[2022-06-16] MEDS: PANTOPRAZOLE 40 MG/10 ML VIAL IV SCH (08:08)
[2022-06-16] MEDS: RIFAXIMIN 550 MG TABLET PO SCH ×2 (08:09→20:04)
[2022-06-16] MEDS: PROPRANOLOL 10 MG TAB PO SCH ×2 (08:09→20:04)
--- NOTE | 2022-06-16 11:07 | P.PN ---
Subjective Progress Note Date: 06/16/22 Principal diagnosis: Acute hepatic encephalopathy This is a 61-year-old male patient with a known history of acute alcohol abuse having quit approximately 2 years ago according to his sister who is at the bedside and provides the information. He has a history hepatic encephalopathy and follows at [facility] with Dr. Cordova for possible liver transplant. He had a previous TIPS procedure there 3-4 years ago. He has a known history of esophageal varices and had previously been seen here by Dr. Nick for esophageal ligation last time performed in 2016. Apparently the patient has had increasing confusion over the last 3-4 days. They found him on the floor this morning unresponsive. He had earlier fallen out of his bed. He was brought in by EMS he states he had been unresponsive since that picked him up. Computed tomography scan of the head and cervical spine revealed no acute intracranial process. No evidence of cervical spine fracture. Mild multilevel degenerative chest disease. White count 1.4. Hemoglobin 9.7. Platelet count 20,000. INR 1.6. Sodium 138. Potassium 3.8. Bicarb 28. BUN 19. Creatinine 0.82. Glucose 119. Calcium 7.4. Total bilirubin 2.2. AST 29. ALT 26. Ammonia level CCLXVI. Albumin 2.8. Urinalysis clear. Urine drug screen positive for benzodiazepines. Serum alcohol less than 10. Teixeira virus by PCR positive. The plan is to admit him to the intensive care unit and we are consulted for the same. He is seen in the emergency department. He arouses to deep sternal rub only. He has received a retention enema of lactulose 200 g once thus far. He is maintaining good O2 saturations in the 90s on room air. He is afebrile. Hemodynamically stable. Receiving normal saline at 75 ML's per hour. Initiated on IV Protonix. Nasogastric tube initiated for lactulose 30 g 4 times a day per ER order. The patient is on rifaximin, Aldactone, Creon, propanolol in the outpatient setting. He was initially to be transferred to [facility] but due to his CoVID positive status it might be several da ys before accepted according to the ER provider. He'll be admitted to our ICU for now. Reevaluated today on 06/16/22, patient remains in the ICU, doing relatively well, he is definitely more awake and more appropriate than yesterday. Nonetheless he remains relatively slow. Patient has been receiving lactulose orally. He has been receiving rifaximin orally 550 twice a day, and he seems to be doing much better. Surprisingly his ammonia level today is down to 26. I am a bit surprised that the significant drop noted practically overnight which is unusual, hence I believe one of the numbers for ammonia level is probably wrong. And I'm recommending a repeat ammonia level in 8 hours. In the meantime we'll continue the lactulose and continue rifaximin. And I will arrange for the patient to be transferred out of the ICU to a medical surgical floor. All labs today were reviewed WBC count is 2.9 hemoglobin is 9.9 electrolytes are normal except for low potassium renal profile is normal, ammonia level is 26. Patient did have positive Covid PCR upon admission, chest x-ray showed no evidence of active cardiopulmonary disease. Patient does have ascites based on physical exam, abdominal ultrasound is pending Objective - Vital Signs Vital signs: Vital Signs Temp 98.6 F 06/16/22 08:00 Pulse 62 06/16/22 08:00 Resp 18 06/16/22 08:00 BP 119/67 06/16/22 08:00 Pulse Ox 94 L 06/16/22 08:00 FiO2 Intake & Output 06/15/22 06/16/22 06/16/22 18:59 06:59 18:59 Intake Total 75 900 150 Output Total 150 425 80 Balance -75 475 70 Weight 77.111 kg 64 kg Intake: IV 825 150 Sodium Chloride 0.9% 1, 825 150 000 ml @ 75 mls/hr IV . [id number] WILIAM Rx#:[id number] Intake, IV Titration 75 75 Amount Sodium Chloride 0.9% 1, 75 75 000 ml @ 75 mls/hr IV . [id number] WILIAM Rx#:[id number] Output: Urine 150 425 80 Uretheral (Brewer) 100 Other: Voiding Method Indwelling Catheter Indwelling Catheter Indwelling Catheter - Exam Physical Exam: Revealed a 61-year-old white male in no distress, on room air, relatively asymptomatic, arousable, follows simple instructions, but relatively slow. Head: Atraumatic, normocephalic. HEENT:[Neck is supple.] [No neck masses.] [No thyromegaly.] [No JVD.] Chest: [Clear throughout, no crackles, no rhonchi, no wheezes.] Cardiac Exam: [Normal S1 and S2, no S3 gallop, no murmur.] Abdomen: [Soft, nontender, positive fluid wave shift consistent with ascites. no megaly, no rebound, no guarding, normal bowel sounds.] Extremities: [No clubbing, no edema, no cyanosis.] Neurological Exam: [No focal neurologic deficit.] Slow but alert oriented 3. Psychiatric: Normal mood, slept affect, normal mental status examination. Skin: No rashes - Labs CBC & Chem 7: 06/16/22 05:52 06/16/22 05:52 Labs: Abnormal Lab Results - Last 24 Hours (Table) 06/15/22 06/15/22 06/16/22 Range/Units 10:54 16:37 05:52 WBC 2.9 L (3.8-10.6) k/uL RBC 2.96 L (4.30-5.90) m/uL Hgb 9.9 L (13.0-17.5) gm/dL Hct 29.1 L (39.0-53.0) % Plt Count 20 L (150-450) k/uL Potassium (3.5-5.1) mmol/L Chloride (98-107) mmol/L Creatinine (0.66-1.25) mg/dL Glucose (74-99) mg/dL POC Glucose (mg/dL) 141 H (70-110) mg/dL Calcium (8.4-10.2) mg/dL Coronavirus (PCR) Detected A (Not Detectd) 06/16/22 Range/Units 05:52 WBC (3.8-10.6) k/uL RBC (4.30-5.90) m/uL Hgb (13.0-17.5) gm/dL Hct (39.0-53.0) % Plt Count (150-450) k/uL Potassium 3.3 L (3.5-5.1) mmol/L Chloride 113 H (98-107) mmol/L Creatinine 0.64 L (0.66-1.25) mg/dL Glucose 103 H (74-99) mg/dL POC Glucose (mg/dL) (70-110) mg/dL Calcium 7.7 L (8.4-10.2) mg/dL Coronavirus (PCR) (Not Detectd) Assessment and Plan Assessment: Impression: Altered mental status with hyperammonemia, hepatic encephalopathy. Acute. Acute COVID-19 infection without significant symptoms and the relatively normal chest x-ray History of liver cirrhosis secondary to alcohol abuse and hepatitis C, being followed at [facility]. He is supposed to have liver transplant. Coagulopathy secondary to liver cirrhosis History of alcoholism, quit drinking over 2 years ago. History of mesenteric ischemia and thromboses of the right hemicolon treated back in 2016 at [facility]. History of esophageal varices with ligation in November of 2015. History of chronic pancreatitis. And possible malabsorption syndrome maintained on Creon in the outpatient setting History of marijuana use. Former smoker. Recommendation: Continue lactulose for now. Continue rifaximin. Repeat ammonia level in 8 hours. Transferred to a regular medical floor. Arrange for ultrasound of the abdomen, possible ascites noted. Continue present supportive care measures. Possible discharge planning in the next 48 hours We will continue to follow.
--- NOTE | 2022-06-16 11:10 | US ---
EXAMINATION TYPE: US abdomen limited DATE OF EXAM: 06/16/2022 COMPARISON: CT abdomen 08/13/2016. CLINICAL HISTORY: ascites. Technique: Limited evaluation for ascites. Findings: Small to moderate amount of fluid visualized. Multiple bowel loops noted. Splenomegaly 20 cm. IMPRESSION: 1. Small to moderate ascites 2. Splenomegaly.
[2022-06-16] MEDS ORDERED: POTASSIUM CHLORIDE ER 20 MEQ TAB.ER PO STA (12:15)
--- NOTE | 2022-06-16 13:05 | P.PN ---
Subjective 61-year-old male with history of alcoholic cirrhosis came in with complaints of increasing confusion patient is a liver transplant list. Patient had previous TIPS procedure because of which patient doesn't have much of ascites with the is found to have severe hepatic encephalopathy with a highly elevated ammonia level of around 220. Patient had history of esophageal varices which were banded in the past. Patient received the lactulose enema patient the is on rifaximin at home which he doesn't take and regular basis and highly noncompliant. Patient does take Xanax 06/16/2022 Patient's ammonia improved patient's symptoms of encephalopathy resolved patient is otherwise clinically doing well later transferred to regular for possibility of discharge tomorrow. Discontinue IV fluids and potassium will be replaced patient potassium is 3.3. OF THE ABDOMEN ONLY SHOWED MINIMAL ASCITES Constitutional: Denied any fatigue denied any fever. Cardio vascular: denied any chest pain, palpitations Gastrointestinal denied any nausea vomiting Pulmonary: Denied any shortness of breath cough Neurologic denied any new focal deficits All inpatient medications were reviewed and appropriate changes in these medications as dictated in the interval history and assessment and plan. PHYSICAL EXAMINATION: GENERAL: The patient is alert and oriented x3, not in any acute distress. Well developed, well nourished. HEENT: Pupils are round and equally reacting to light. EOMI. No scleral icterus. No conjunctival pallor. Normocephalic, atraumatic. No pharyngeal erythema. No thyromegaly. CARDIOVASCULAR: S1 and S2 present. No murmurs, rubs, or gallops. PULMONARY: Chest is clear to auscultation, no wheezing or crackles. ABDOMEN: Soft, nontender, nondistended, normoactive bowel sounds. No palpable organomegaly. MUSCULOSKELETAL: No joint swelling or deformity. EXTREMITIES: No cyanosis, clubbing, or pedal edema. NEUROLOGICAL: Gross neurological examination did not reveal any focal deficits. SKIN: No rashes. Assessment and plan -Altered mental status, secondary to hepatic encephalopathy, resolved and ammonia improved. Physical therapy I patient with a evaluation a possibility of discharge tomorrow -COVID-19 infection -Alcoholic cirrhosis patient is on liver transplant list at this time - pancytopenia secondary to splenomegaly and cirrhosis -Coagulopathy the secondary to chronic liver disease -Anxiety disorder and depression DVT prophylaxis: Patient is partially anticoagulated secondary to liver disease Objective - Vital Signs Vital signs: Vital Signs Temp 98.6 F 01/15/23 08:00 Pulse 62 06/16/22 08:00 Resp 18 06/16/22 08:00 BP 119/67 06/16/22 08:00 Pulse Ox 94 L 06/16/22 08:00 FiO2 Intake & Output 06/15/22 06/16/22 06/16/22 18:59 06:59 18:59 Intake Total 75 900 150 Output Total 150 425 80 Balance -75 475 70 Weight 77.111 kg 64 kg Intake: IV 825 150 Sodium Chloride 0.9% 1, 825 150 000 ml @ 75 mls/hr IV . [id number] [facility] Rx#:[id number] Intake, IV Titration 75 75 Amount Sodium Chloride 0.9% 1, 75 75 000 ml @ 75 mls/hr IV . [id number] [facility] Rx#:[id number] Output: Urine 150 425 80 Uretheral (Brewer) 100 Other: Voiding Method Indwelling Catheter Indwelling Catheter Indwelling Catheter - Labs CBC & Chem 7: 06/16/22 05:52 06/16/22 05:52 Labs: Abnormal Lab Results - Last 24 Hours (Table) 06/15/22 06/16/22 06/16/22 Range/Units 16:37 05:52 05:52 WBC 2.9 L (3.8-10.6) k/uL RBC 2.96 L (4.30-5.90) m/uL Hgb 9.9 L (13.0-17.5) gm/dL Hct 29.1 L (39.0-53.0) % Plt Count 20 L (150-450) k/uL Potassium 3.3 L (3.5-5.1) mmol/L Chloride 113 H (98-107) mmol/L Creatinine 0.64 L (0.66-1.25) mg/dL Glucose 103 H (74-99) mg/dL POC Glucose (mg/dL) 141 H (70-110) mg/dL Calcium 7.7 L (8.4-10.2) mg/dL
[2022-06-17] MEDS: RIFAXIMIN 550 MG TABLET PO SCH ×2 (10:34→22:09)
[2022-06-17] MEDS: PROPRANOLOL 10 MG TAB PO SCH ×2 (10:34→22:09)
[2022-06-17] MEDS: PANTOPRAZOLE 40 MG/10 ML VIAL IV SCH (10:34)
[2022-06-17 11:31] LABS: HCT 29.4 % (39.0-53.0); MCH 33.6 pg (25.0-35.0); MCHC 33.9 g/dL (31.0-37.0); MCV 99.2 fL (80.0-100.0); Macrocytosis Slight; Mean Platelet Volume 9.6; Poikilocytosis Slight; RBC 2.96 m/uL (4.30-5.90); RDW 14.7 % (11.5-15.5); WBC 4.1 k/uL (3.8-10.6)
--- NOTE | 2022-06-17 11:31 | P.PN ---
Subjective Progress Note Date: 06/17/22 Principal diagnosis: Liver failure. This is a 61-year-old male patient with a known history of acute alcohol abuse having quit approximately 2 years ago according to his sister who is at the bedside and provides the information. He has a history hepatic encephalopathy and follows at [facility] with Dr. Cordova for possible liver transplant. He had a previous TIPS procedure there 3-4 years ago. He has a known history of esophageal varices and had previously been seen here by Dr. Nick for esophageal ligation last time performed in 2016. Apparently the pat matthew has had increasing confusion over the last 3-4 days. They found him on the floor this morning unresponsive. He had earlier fallen out of his bed. He was brought in by EMS he states he had been unresponsive since that picked him up. Computed tomography scan of the head and cervical spine revealed no acute intracranial process. No evidence of cervical spine fracture. Mild multilevel degenerative chest disease. White count 1.4. Hemoglobin 9.7. Platelet count 20,000. INR 1.6. Sodium 138. Potassium 3.8. Bicarb 28. BUN 19. Creatinine 0.82. Glucose 119. Calcium 7.4. Total bilirubin 2.2. AST 29. ALT 26. Ammonia level CCLXVI. Albumin 2.8. Urinalysis clear. Urine drug screen positive for benzodiazepines. Serum alcohol less than 10. Teixeira virus by PCR positive. The plan is to admit him to the intensive care unit and we are consulted for the same. He is seen in the emergency department. He arouses to deep sternal rub only. He has received a retention enema of lactulose 200 g once thus far. He is maintaining good O2 saturations in the 90s on room air. He is afebrile. Hemodynamically stable. Receiving normal saline at 75 ML's per hour. Initiated on IV Protonix. Nasogastric tube initiated for lactulose 30 g 4 times a day per ER order. The patient is on rifaximin, Aldactone, Creon, propanolol in the outpatient setting. He was initially to be transferred to [facility] but due to his CoVID positive status it might be several days before accepted according to the ER provider. He'll be admitted to our ICU for now. Reevaluated today on 06/16/22, patient remains in the ICU, doing relatively well, he is definitely more awake and more appropriate than yesterday. Nonetheless he remains relatively slow. Patient has been receiving lactulose orally. He has been receiving rifaximin orally 550 twice a day, and he seems to be doing much better. Surprisingly his ammonia level today is down to 26. I am a bit surprised that the significant drop noted practically overnight which is unusual, hence I believe one of the numbers for ammonia level is probably wrong. And I'm recommending a repeat ammonia level in 8 hours. In the meantime we'll continue the lactulose and continue rifaximin. And I will arrange for the patient to be transferred out of the ICU to a medical surgical floor. All labs today were reviewed WBC count is 2.9 hemoglobin is 9.9 electrolytes are normal except for low potassium renal profile is normal, ammonia level is 26. Patient did have positive Covid PCR upon admission, chest x-ray showed no evidence of active cardiopulmonary disease. Patient does have ascites based on physical exam, abdominal ultrasound is pending Progress note dated 06/17/2022. The patient is seen today in room 468. Patient is doing better. The patient's on room air. He is not receiving any IV fluids. There are no new laboratory data. Currently, his room air saturation is 97%. Blood pressure is 116/63, heart rate is 56, respiratory rate 80, and temperature is 98.6F. The patient's labs, x-rays, medications are reviewed. Objective - Vital Signs Vital signs: Vital Signs Temp 98.6 F 06/17/22 07:12 Pulse 56 L 06/17/22 10:48 Resp 18 06/17/22 10:48 BP 116/63 06/17/22 07:12 Pulse Ox 97 06/17/22 07:12 FiO2 Intake & Output 06/16/22 06/17/22 06/17/22 18:59 06:59 18:59 Intake Total 1040 540 Output Total 280 200 Balance 760 340 Intake: IV 450 Sodium Chloride 0.9% 1, 450 000 ml @ 75 mls/hr IV . [id number] [facility] Rx#:[id number] Oral 590 540 Output: Urine 280 200 Other: Voiding Method Indwelling Catheter Indwelling Catheter Indwelling Catheter # Bowel Movements 1 - Exam No acute distress, oriented 3. No respiratory distress. Room air saturation 97%. HEENT examination is grossly unremarkable. Neck supple. Full range of motion. No adenopathy thyromegaly or neck vein distention. Cardiovascular examination reveals regular rhythm rate. S1-S2 normal. No S3 or S4. No discernible murmur noted. Heart rate 57 bpm. Lungs reveal mostly clear breath sounds. Breath sounds are equal bilaterally. No wheezes or crackles. Scattered mild rhonchi are noted. Abdomen soft bowel sounds are heard. No masses or tenderness. Extremities are intact. No cyanosis clubbing or edema. Skin is without rash or lesion. Neurologic examination is brief but nonfocal. - Labs CBC & Chem 7: 06/16/22 05:52 06/16/22 05:52 Assessment and Plan Assessment: Acute mental status changes, secondary to elevated ammonia levels, and hepatic encephalopathy. Acute coronavirus infection, without coronavirus associated pneumonia. History of liver cirrhosis, secondary to alcohol abuse and hepatitis C. Coagulopathy of liver failure. History of alcohol abuse. History of mesenteric ischemia, and thrombosis, of the right hemicolon, 2016, treated at [facility]. History of esophageal varices, with ligation. Chronic pancreatitis with pancreatic exocrine insufficiency. History of marijuana use. History of tobacco use. Plan: Plan dated 06/17/2022. The patient's labs, x-rays, and medications are reviewed. The patient will continue with his current regimen. The patient needs to follow-up with his liver transplant doctor and continuous absorption process operator at [facility] after discharge. No additional recommendations are made. Prognosis is guarded. We will continue to follow and make additional recommendations along the way. Time with Patient: Less than 30
[2022-06-17 11:36] LABS: Platelet Count 22 k/uL (150-450)
[2022-06-17 11:50] LABS: African American GFR (CKD) >90 (>60 ml/min/1.73 sqM); Anion Gap 2 mmol/L; Blood Urea Nitrogen 19 mg/dL (9-20); Calcium 7.8 mg/dL (8.4-10.2); Carbon Dioxide 28 mmol/L (22-30); Chloride 109 mmol/L (98-107); Glucose 163 mg/dL (74-99); Non-African American GFR(CKD) >90 (>60 ml/min/1.73 sqM); Potassium 3.8 mmol/L (3.5-5.1); Sodium 139 mmol/L (137-145)
--- NOTE | 2022-06-17 15:00 | P.PN ---
Subjective Progress Note Date: 06/17/22 06/17/2022 this a 61-year-old gentleman admitted with hepatic encephalopathy, acute COVID-19 infection- asymptomatic, maintaining O2 sats in the high 90s on room air.labs pending. Continues on Xifaxan. Sensorium significantly improved. Positive diet intake, denies, nausea vomiting. Denies abdominal tenderness. Objective - Vital Signs Vital signs: Vital Signs Temp 99.0 F 06/17/22 13:36 Pulse 57 L 06/17/22 13:36 Resp 17 06/17/22 13:36 BP 107/60 06/17/22 13:36 Pulse Ox 95 06/17/22 13:36 FiO2 Intake & Output 06/16/22 06/17/22 06/17/22 18:59 06:59 18:59 Intake Total 1040 540 200 Output Total 280 200 Balance 760 340 200 Intake: IV 450 Sodium Chloride 0.9% 1, 450 000 ml @ 75 mls/hr IV . [id number] [facility] Rx#:[id number] Oral 590 540 200 Output: Urine 280 200 Other: Voiding Method Indwelling Catheter Indwelling Catheter Indwelling Catheter # Bowel Movements 1 - Exam GENERAL:Alert and oriented x3, NAD. HEENT: Normocephalic, atraumatic Pupils are round and equally reacting to light. EOMI. No scleral icterus. No conjunctival pallor. CARDIOVASCULAR: S1 and S2 present. No murmurs, rubs, or gallops. PULMONARY: Unlabored, Chest is clear to auscultation, no wheezing or crackles. ABDOMEN: Soft, nontender, nondistended, normoactive bowel sounds. No palpable organomegaly. MUSCULOSKELETAL: No joint swelling or deformity. EXTREMITIES: No cyanosis, clubbing, or pedal edema. NEUROLOGICAL: Gross neurological examination did not reveal any focal deficits. SKIN: Warm and dry, No rashes. - Labs CBC & Chem 7: 06/17/22 11:18 06/17/22 11:18 Labs: Abnormal Lab Results - Last 24 Hours (Table) 06/17/22 06/17/22 Range/Units 11:18 11:18 RBC 2.96 L (4.30-5.90) m/uL Hgb 10.0 L (13.0-17.5) gm/dL Hct 29.4 L (39.0-53.0) % Plt Count 22 L (150-450) k/uL Chloride 109 H (98-107) mmol/L Glucose 163 H (74-99) mg/dL Calcium 7.8 L (8.4-10.2) mg/dL Assessment and Plan Assessment: -Altered mental status, secondary to hepatic encephalopathy, resolved and ammonia improved. -COVID-19 infection, asymptomatic -Alcoholic cirrhosis patient is on liver transplant list at this time - pancytopenia secondary to splenomegaly and cirrhosis -Coagulopathy the secondary to chronic liver disease -Anxiety disorder and depression Plan: Continue on current medication regime, monitoring and symptomatically treatment. Labs/ammonia pending. PT evaluation pending. Discharge planning in progress. The impression and plan of care has been dictated as directed. : I performed a history and examination of this patient, discussed the same with the dictator. I agree with the dictator's note ,documented as a scribe. Any additional findings or plans will be noted.
[2022-06-18 08:08] VITALS: BP 122/71; PULSE 60; RESP 19; TEMP 98.6
[2022-06-18] MEDS: PANTOPRAZOLE 40 MG/10 ML VIAL IV SCH (09:17)
[2022-06-18] MEDS: RIFAXIMIN 550 MG TABLET PO SCH (09:17)
[2022-06-18] MEDS: PROPRANOLOL 10 MG TAB PO SCH (09:17)
[2022-06-18] MEDS ORDERED: TAMSULOSIN 0.4 MG CAP.ER.24H PO SCH (10:00)
--- NOTE | 2022-06-18 11:45 | P.DS ---
Providers Date of admission: 06/15/22 14:41 Expected date of discharge: 06/18/22 Attending physician: Rishabh Koenig Consults: 06/15/22 14:48 Consult Physician Stat Consulting Provider: Deny Wilson Reason/Comments: Critical Care Do you want consulting provider notified?: Already Contacted Primary care physician: Rishabh Koenig Hospital Course: Final Diagnoses: -Altered mental status, secondary to hepatic encephalopathy, resolved and ammonia improved. -COVID-19 infection, asymptomatic -Alcoholic cirrhosis patient is on liver transplant list at this time - pancytopenia secondary to splenomegaly and cirrhosis -Coagulopathy the secondary to chronic liver disease -Anxiety disorder and depression Hospital course:This is a 61-year-old gentleman admitted with hepatic encephalopathy, acute COVID-19 infection- asymptomatic, maintaining O2 sats in the high 90s on room air.labs pending. Continues on Xifaxan. Sensorium significantly improved. Positive diet intake, denies, nausea vomiting. Denies abdominal tenderness. Ammonia fluctuates between less than 9 and 21. Continues on Xifaxan.Brewer catheter discontinued recently this morning, Flomax initiated. patient reports he voided, post void residual reported 84. Recommended patient leave in a couple of hours to ensure no further urinary retention. Patient declines, insisting on discharge now, states his ride is enroute. Patient is alert and oriented 3. Patient will be discharged home today in a stable condition with guarded prognosis. The impression and plan of care has been dictated as directed. : I performed a history and examination of this patient, discussed the same with the dictator. I agree with the dictator's note ,documented as a scribe. Any additional findings or plans will be noted. Patient Condition at Discharge: Stable Plan - Discharge Summary Discharge Rx Participant: No New Discharge Prescriptions: New Tamsulosin [Flomax] 0.4 mg PO PC-BRKFST #10 cap Continue Propranolol [Inderal] 10 mg PO BID Pantoprazole Sodium 40 mg PO DAILY Spironolactone [Aldactone] 50 mg PO BID buPROPion HCL [Wellbutrin XL] 300 mg PO DAILY Rifaximin [Xifaxan] 550 mg PO BID ALPRAZolam [Xanax] 0.5 mg PO TID PRN PRN Reason: Anxiety Lipase/Protease/Amylase [Umu Han 36,000 Unit Capsule] 2 cap PO TID Furosemide [Lasix] 40 mg PO DAILY Discharge Medication List Pantoprazole Sodium 40 mg PO DAILY 03/30/14 [History] Propranolol [Inderal] 10 mg PO BID 03/30/14 [History] Spironolactone [Aldactone] 50 mg PO BID 03/30/14 [History] buPROPion HCL [Wellbutrin XL] 300 mg PO DAILY 03/06/16 [History] ALPRAZolam [Xanax] 0.5 mg PO TID PRN 11/03/19 [History] Rifaximin [Xifaxan] 550 mg PO BID 11/03/19 [History] Furosemide [Lasix] 40 mg PO DAILY 06/15/22 [History] Lipase/Protease/Amylase [Umu Han 36,000 Unit Capsule] 2 cap PO TID 06/15/22 [History] Tamsulosin [Flomax] 0.4 mg PO PC-BRKFST #10 cap 06/18/22 [Rx] Follow up Appointment(s)/Referral(s): [facility]Other] - 1 Week (PLEASE CALL AND SCHEDULE APPOINTMENT.) [facility] - 1 Week Rishabh Koenig DO [Primary Care Provider] - 3 Days (office is busy at time of discharge. Please call to schedule appointment ) Patient Instructions/Handouts: Hepatic Encephalopathy (DC), COVID-19 (Coronavirus Disease 2019) (DC)
--- NOTE | 2022-06-18 12:17 | P.PN ---
Subjective Progress Note Date: 06/18/22 Principal diagnosis: Liver failure, Covid infection This is a 61-year-old male patient with a known history of acute alcohol abuse having quit approximately 2 years ago according to his sister who is at the bedside and provides the information. He has a history hepatic encephalopathy and follows at [facility] with Dr. Cordova for possible liver transplant. He had a previous TIPS procedure there 3-4 years ago. He has a known history of esophageal varices and had previously been seen here by Dr. Nick for esophageal ligation last time performed in 2016. Apparently the patient has had increasing confusion over the last 3-4 days. They found him on the floor this morning unresponsive. He had earlier fallen out of his bed. He was brought in by EMS he states he had been unresponsive since that picked him up. Computed tomography scan of the head and cervical spine revealed no acute intracranial process. No evidence of cervical spine fracture. Mild multilevel degenerative chest disease. White count 1.4. Hemoglobin 9.7. Platelet count 20,000. INR 1.6. Sodium 138. Potassium 3.8. Bicarb 28. BUN 19. Creatinine 0.82. Glucose 119. Calcium 7.4. Total bilirubin 2.2. AST 29. ALT 26. Ammonia level CCLXVI. Albumin 2.8. Urinalysis clear. Urine drug screen positive for benzodiazepines. Serum alcohol less than 10. Teixeira virus by PCR positive. The plan is to admit him to the intensive care unit and we are consulted for the same. He is seen in the emergency department. He arouses to deep sternal rub only. He has received a retention enema of lactulose 200 g once thus far. He is maintaining good O2 saturations in the 90s on room air. He is afebrile. Hemodynamically stable. Receiving normal saline at 75 ML's per hour. Initiated on IV Protonix. Nasogastric tube initiated for lactulose 30 g 4 times a day per ER order. The patient is on rifaximin, Aldactone, Creon, propanolol in the outpatient setting. He was initially to be transferred to [facility] but due to his CoVID positive status it might be several days before accepted according to the ER provider. He'll be admitted to our ICU for now. Reevaluated today on 06/16/22, patient remains in the ICU, doing relatively well, he is definitely more awake and more appropriate than yesterday. Nonetheless he remains relatively slow. Patient has been receiving lactulose orally. He has been receiving rifaximin orally 550 twice a day, and he seems to be doing much better. Surprisingly his ammonia level today is down to 26. I am a bit surprised that the significant drop noted practically overnight which is unusual, hence I believe one of the numbers for ammonia level is probably wrong. And I'm recommending a repeat ammonia level in 8 hours. In the meantime we'll continue the lactulose and continue rifaximin. And I will arrange for the patient to be transferred out of the ICU to a medical surgical floor. All labs today were reviewed WBC count is 2.9 hemoglobin is 9.9 electrolytes are normal except for low potassium renal profile is normal, ammonia level is 26. Patient did have positive Covid PCR upon admission, chest x-ray showed no evidence of active cardiopulmonary disease. Patient does have ascites based on physical exam, abdominal ultrasound is pending Progress note dated 06/17/2022. The patient is seen today in room 468. Patient is doing better. The patient's on room air. He is not receiving any IV fluids. There are no new laboratory data. Currently, his room air saturation is 97%. Blood pressure is 116/63, heart rate is 56, respiratory rate 80, and temperature is 98.6F. The patient's labs, x-rays, medications are reviewed. I'm evaluating this patient on 06/18/2022 in follow-up on the general medical floor. Patient is sitting up in bed, on room air, alert and agitated today. No obvious respiratory distress. His oxygen saturation is 94% on room air. No new x-ray to review today. No new CBC or BMP to review today. Patient's ammonia level today is stable at 21. Vital signs remain stable. Plan is for discharge home with his . Objective - Vital Signs Vital signs: Vital Signs Temp 98.6 F 06/18/22 08:00 Pulse 60 06/18/22 08:00 Resp 19 06/18/22 08:00 BP 122/71 06/18/22 08:00 Pulse Ox 94 L 06/18/22 08:00 FiO2 Intake & Output 06/17/22 06/18/22 06/18/22 18:59 06:59 18:59 Intake Total 200 320 Output Total 425 Balance -225 320 Intake: Oral 200 320 Output: Urine 425 Other: Voiding Method Indwelling Catheter # Bowel Movements 1 1 - Exam No acute distress, oriented 3. No respiratory distress. Room air saturation 94%. HEENT examination is grossly unremarkable. Neck supple. Full range of motion. No adenopathy thyromegaly or neck vein distention. Cardiovascular examination reveals regular rhythm rate. S1-S2 normal. No extra heart sounds. Heart rate 60 bpm. Lungs sounds are clear on auscultation throughout. No wheezes, rhonchi, crackles. On room air. No conversational dyspnea or accessory muscle use. Abdomen soft bowel sounds are heard. No masses or tenderness. Extremities are intact. No cyanosis clubbing or edema. Skin is without rash or lesion. Neurologic examination is brief but nonfocal. - Labs CBC & Chem 7: 06/17/22 11:18 06/17/22 11:18 Assessment and Plan Assessment: Acute mental status changes, secondary to elevated ammonia levels, and hepatic encephalopathy. Acute coronavirus infection, without coronavirus associated pneumonia. History of liver cirrhosis, secondary to alcohol abuse and hepatitis C. Coagulopathy of liver failure. History of alcohol abuse. History of mesenteric ischemia, and thrombosis, of the right hemicolon, 2016, treated at [facility]. History of esophageal varices, with ligation. Chronic pancreatitis with pancreatic exocrine insufficiency. History of marijuana use. History of tobacco use. Plan: Patient's medications were reviewed Patient's pulmonary status is stable, and he is on room air. Recommend following up with district extension service agent at [facility] after discharge From a pulmonary standpoint, patient is cleared for discharge I have personally seen and examined the patient, performed the documentation and the assessment and plan as written. Number of minutes spent on the visit: 10.
[2022-06-19] MEDS ORDERED: TAMSULOSIN 0.4 MG CAP.ER.24H PO SCH (08:30)
== END 2022-06-18 12:05 | disposition home or self-care (01) | DRG 441 ==
LOC: EC 09:02 → 2SICU 14:41 → 4SSUR 06-17 06:53
PROVIDERS: ADMIT Family Medicine; ATTEND Family Medicine
DX: K76.82 Hepatic encephalopathy (principal); U07.1 COVID-19; D61.818 Other pancytopenia; D68.4 Acquired coagulation factor deficiency; K86.1 Other chronic pancreatitis; K90.9 Intestinal malabsorption, unspecified; I85.00 Esophageal varices without bleeding; B19.20 Unspecified viral hepatitis C without hepatic coma; E88.09 Other disorders of plasma-protein metabolism, not elsewhere classified; F10.21 Alcohol dependence, in remission; K21.9 Gastro-esophageal reflux disease without esophagitis; R16.1 Splenomegaly, not elsewhere classified; Z86.010 Personal history of colon polyps; R19.7 Diarrhea, unspecified; F41.9 Anxiety disorder, unspecified; F32.A Depression, unspecified; K86.81 Exocrine pancreatic insufficiency; Z76.82 Awaiting organ transplant status; Z79.899 Other long term (current) drug therapy; K70.40 Alcoholic hepatic failure without coma; K70.30 Alcoholic cirrhosis of liver without ascites; Z91.041 Radiographic dye allergy status; Z91.013 Allergy to seafood; Z91.199 Patient's noncompliance with other medical treatment and regimen due to unspecified reason; Z91.81 History of falling
CPT/HCPCS: 36415; 51702; 70450; 71045; 72125; 76705; 80048; 80053; 80306; 80320; 81003; 82140; 83605; 83735; 84484; 85025; 85027; 85610; 85730; 87635; 93005; 96360; 99285

== ENCOUNTER → 2023-09-30 | Outpatient (CLI) | payer MEDICARE, OTHER ==
--- NOTE | 2023-10-01 09:43 | US ---
EXAMINATION TYPE: US abdomen complete DATE OF EXAM: 09/30/2023 COMPARISON: NONE CLINICAL INDICATION: Male, 63 years old with history of K83.1 OBSTRUCTION OF BILE DUCT; distended abd , known cirrhosis TECHNIQUE: Multiple sonographic images of the abdomen are obtained. FINDINGS: EXAM MEASUREMENTS: Liver Length: 12.5 cm Gallbladder Wall: 1.3 cm CBD: 0.3 cm Spleen: 21.0 cm Right Kidney: 8.4 x 4.1 x 4.0 cm Left Kidney: 10.9 x 3.7 x 3.0 cm NURSE HEALTHCARE MANAGER NOTES: Patient has cirrhosis with right portal vein stenting Pancreas: limited views Liver: nodular with estimation of size, stenting seen within RPV Gallbladder: multiple stones with wall thickening Evidence for sonographic Hennessy's sign: no CBD: wnl Spleen: enlarged Right Kidney: wnl Left Kidney: wnl Upper IVC: wnl Abd Aorta: not seen due to bowel gas ascites seen throughout scan IMPRESSION: 1. Ascites. 2. Cholelithiasis. Gallbladder wall thickening is present. Correlate for acute cholecystitis. 3. Hepatic cirrhosis
== END | disposition home or self-care (01) ==
LOC: RADUSWWP 07:50
PROVIDERS: ATTEND Family Medicine
DX: R18.8 Other ascites (principal); K80.20 Calculus of gallbladder without cholecystitis without obstruction; K74.60 Unspecified cirrhosis of liver
CPT/HCPCS: 76700

== ENCOUNTER 2024-06-30 10:16 | Emergency (ER) | payer MEDICARE, OTHER ==
--- NOTE | 2024-06-30 11:16 | ED ---
Recheck HPI - General Chief Complaint: Recheck/Abnormal Lab/Rx Stated Complaint: weakness Time Seen by Provider: 06/30/24 10:41 Source: patient, RN notes reviewed, old records reviewed Mode of arrival: ambulatory Limitations: no limitations - History of Present Illness Initial Comments: Will despite this is a 63-year-old male to the ER for evaluation patient [facility] for evaluation of GI bleed low hemoglobin abnormal creatinine likely upper GI bleed with history of liver disease. Patient been feeling weak shortness of breath for days MD Complaint: abnormal lab (Low hemoglobin and increased creatinine) -: unknown Symptoms Since Prior Visit: no new symptoms Context: planned re-check Associated Symptoms: none Treatments Prior to Arrival: other (0) - Related Data Home Medications Medication Instructions Recorded Confirmed Propranolol [Inderal] 10 mg PO BID 03/30/14 06/30/24 Rifaximin [Xifaxan] 550 mg PO BID 11/03/19 06/30/24 Furosemide [Lasix] 80 mg PO DAILY 07/27/22 06/30/24 Spironolactone [Aldactone] 200 mg PO DAILY 07/27/22 06/30/24 ALPRAZolam [Xanax] 0.25 mg PO Q8H PRN 06/30/24 06/30/24 Hydrocortisone Pr Cream 1 applic RECTAL BID PRN 06/30/24 06/30/24 [Proctosol-Hc 2.5%] Lipase/Protease/Amylase [Creon Dr 3 cap PO TID 06/30/24 06/30/24 24,000 Units Capsule] Mupirocin 2% Oint [Bactroban 2% 1 applic TOPICAL BID PRN 06/30/24 06/30/24 Oint] Sulfamethox-Tmp 800-160Mg [Bactrim 1 tab PO DAILY 06/30/24 06/30/24 DS 800-160 mg] ursodioL [Ursodiol] 300 mg PO BID 06/30/24 06/30/24 Allergies Allergy/AdvReac Type Severity Reaction Status Date / Time Iodinated Contrast Media Allergy Swelling Verified 06/30/24 10:41 [Iodinated Contrast Media - IV Dye] shellfish derived [Shrimp] Allergy Unknown Verified 06/30/24 10:41 Review of Systems ROS Statement: Those systems with pertinent positive or pertinent negative responses have been documented in the HPI. ROS Other: All systems not noted in ROS Statement are negative. Past Medical History Past Medical History: GERD/Reflux, Liver Disease Additional Past Medical History / Comment(s): 12/20/15 Pt was admitted to [facility] ICU and found to have acute mesenteric ischemia and thrombosis of R hemicolon-he also had massive splenomegaly-he was transfered to [facility] and he states he is now on the liver transplant list. Other hx: anemia, thrombocytopenia, cirrhosis, hepatitis c stated was tx 7 years ago, esophageal varices with surgery, chronic diarrhea. pt states that his last drink was 10-12 years ago History of Any Multi-Drug Resistant Organisms: None Reported Past Surgical History: Hernia Repair, Tonsillectomy Additional Past Surgical History / Comment(s): EGD's, esophageal banding(d/t esophageal varacies), cherelle inguinal hernia, colonoscopy-polyps removed were benign. Past Anesthesia/Blood Transfusion Reactions: No Reported Reaction Past Psychological History: Anxiety Smoking Status: Former smoker, Unknown if ever smoked Past Alcohol Use History: Rare Past Drug Use History: Marijuana - Past Family History Mother Family Medical History: No Reported History Additional Family Medical History / Comment(s): Mother at the age of 92 yrs. Father Additional Family Medical History / Comment(s): smoked/drank had lung disease. Father at the age of 78yrs. General Exam Limitations: altered mental status, physical limitation General appearance: alert, anxious, lethargic, obtunded, in distress Head exam: Present: atraumatic, normocephalic, normal inspection Eye exam: Present: normal appearance, PERRL, EOMI. Absent: scleral icterus, conjunctival injection, periorbital swelling ENT exam: Present: normal exam, mucous membranes moist Neck exam: Present: normal inspection. Absent: tenderness, meningismus, lymphadenopathy Respiratory exam: Present: normal lung sounds bilaterally. Absent: respiratory distress, wheezes, rales, rhonchi, stridor Cardiovascular Exam: Present: regular rate, normal rhythm, normal heart sounds. Absent: systolic murmur, diastolic murmur, rubs, gallop, clicks GI/Abdominal exam: Present: soft, normal bowel sounds. Absent: distended, tenderness, guarding, rebound, rigid Rectal exam: Present: black stool, bloody stool Extremities exam: Present: normal inspection, full ROM, normal capillary refill. Absent: tenderness, pedal edema, joint swelling, calf tenderness Back exam: Present: normal inspection Neurological exam: Present: alert, oriented X3, CN II-XII intact Psychiatric exam: Present: normal affect, normal mood Skin exam: Present: warm, dry, intact, normal color. Absent: rash Course Vital Signs 06/30/24 06/30/24 06/30/24 10:17 11:00 11:30 Temperature 97.5 F L Pulse Rate 69 Respiratory 20 16 Rate Blood Pressure 88/53 96/48 102/59 O2 Sat by Pulse 100 87 L Oximetry 06/30/24 06/30/24 06/30/24 12:21 12:30 13:00 Temperature Pulse Rate 65 66 67 Respiratory 16 17 22 Rate Blood Pressure 87/82 87/52 95/61 O2 Sat by Pulse 99 Oximetry 06/30/24 06/30/24 06/30/24 13:30 14:00 14:30 Temperature Pulse Rate 65 66 Respiratory 20 16 15 Rate Blood Pressure 102/64 102/54 90/49 O2 Sat by Pulse 100 Oximetry 06/30/24 06/30/24 06/30/24 15:00 15:30 15:51 Temperature Pulse Rate 67 66 59 L Respiratory 16 15 16 Rate Blood Pressure 87/49 81/41 87/42 O2 Sat by Pulse 100 98 96 Oximetry 06/30/24 06/30/24 06/30/24 16:30 17:00 17:30 Temperature Pulse Rate 61 64 64 Respiratory 13 14 13 Rate Blood Pressure 91/48 93/58 70/43 O2 Sat by Pulse Oximetry 06/30/24 06/30/24 06/30/24 18:00 18:30 20:07 Temperature 97.9 F Pulse Rate 65 65 Respiratory 17 24 19 Rate Blood Pressure 79/42 77/44 81/49 O2 Sat by Pulse 98 Oximetry 06/30/24 06/30/24 06/30/24 20:17 20:37 22:01 Temperature 98.1 F 98 F 97.9 F Pulse Rate 62 62 64 Respiratory 17 17 17 Rate Blood Pressure 84/51 83/53 87/56 O2 Sat by Pulse 100 100 99 Oximetry 06/30/24 06/30/24 06/30/24 22:29 22:39 22:59 Temperature 98.0 F 97.9 F 97.3 F L Pulse Rate 61 61 61 Respiratory 16 17 17 Rate Blood Pressure 98/61 89/53 84/43 O2 Sat by Pulse 100 99 100 Oximetry 07/01/24 07/01/24 07/01/24 01:45 04:04 04:12 Temperature 97 F L 97.3 F L 97.9 F Pulse Rate 63 62 62 Respiratory 17 17 17 Rate Blood Pressure 97/64 89/59 85/61 O2 Sat by Pulse 98 99 98 Oximetry 07/01/24 07/01/24 07/01/24 04:32 06:00 06:32 Temperature 97.5 F L 97.9 F Pulse Rate 62 59 L 54 L Respiratory 17 17 17 Rate Blood Pressure 92/56 99/62 87/55 O2 Sat by Pulse 97 100 95 Oximetry 07/01/24 07/01/24 07/01/24 07:59 08:00 08:30 Temperature 98.4 F Pulse Rate 63 63 Respiratory 16 21 18 Rate Blood Pressure 86/58 86/58 107/60 O2 Sat by Pulse 98 97 Oximetry 07/01/24 07/01/24 07/01/24 09:00 09:30 09:55 Temperature Pulse Rate 63 58 L 58 L Respiratory 16 19 18 Rate Blood Pressure 92/58 102/81 106/62 O2 Sat by Pulse 98 99 99 Oximetry 07/01/24 07/01/24 07/01/24 09:57 10:00 10:30 Temperature 98.1 F Pulse Rate 58 L 56 L 59 L Respiratory 18 14 13 Rate Blood Pressure 106/62 106/62 102/60 O2 Sat by Pulse 99 100 100 Oximetry 07/01/24 07/01/24 07/01/24 11:00 13:18 15:26 Temperature 98.0 F Pulse Rate 66 62 67 Respiratory 12 20 16 Rate Blood Pressure 102/60 70/41 99/62 O2 Sat by Pulse 96 96 Oximetry 07/01/24 07/01/24 07/01/24 16:45 17:05 18:07 Temperature 98.2 F 98.0 F 98.2 F Pulse Rate 61 52 L 67 Respiratory 16 16 18 Rate Blood Pressure 95/57 93/47 112/62 O2 Sat by Pulse 97 97 98 Oximetry 07/01/24 07/01/24 07/01/24 18:18 18:38 20:35 Temperature 98.2 F 97.8 F 97.9 F Pulse Rate 64 59 L 60 Respiratory 18 16 16 Rate Blood Pressure 99/53 83/52 87/44 O2 Sat by Pulse 99 97 98 Oximetry 07/02/24 07/02/24 07/02/24 01:06 02:21 03:00 Temperature 97.9 F Pulse Rate 56 L 54 L 53 L Respiratory 16 15 15 Rate Blood Pressure 108/71 94/66 103/72 O2 Sat by Pulse 97 97 Oximetry 07/02/24 07/02/24 07/02/24 03:49 04:00 05:00 Temperature 97.9 F Pulse Rate 60 56 L 63 Respiratory 16 14 13 Rate Blood Pressure 102/62 102/62 86/61 O2 Sat by Pulse 94 L 96 97 Oximetry 07/02/24 07/02/24 07/02/24 06:18 08:00 09:00 Temperature 98.6 F 98 F Pulse Rate 72 54 L 56 L Respiratory 16 20 20 Rate Blood Pressure 80/63 96/63 92/62 O2 Sat by Pulse 96 96 94 L Oximetry 07/02/24 07/02/24 07/02/24 09:56 11:00 12:00 Temperature Pulse Rate 61 60 64 Respiratory 20 16 20 Rate Blood Pressure 97/60 117/74 103/68 O2 Sat by Pulse 97 97 98 Oximetry 07/02/24 07/02/24 07/02/24 13:00 14:00 15:00 Temperature Pulse Rate 77 54 L 55 L Respiratory 18 16 20 Rate Blood Pressure 106/69 97/69 100/67 O2 Sat by Pulse 98 98 96 Oximetry 07/02/24 07/02/24 07/02/24 16:00 17:00 18:00 Temperature Pulse Rate 57 L 61 70 Respiratory 16 20 16 Rate Blood Pressure 103/64 131/70 107/53 O2 Sat by Pulse 97 96 96 Oximetry 07/02/24 07/02/24 07/02/24 19:11 20:00 21:00 Temperature 97.8 F Pulse Rate 53 L 56 L 48 L Respiratory 16 15 16 Rate Blood Pressure 105/89 111/63 111/63 O2 Sat by Pulse 97 97 96 Oximetry 07/02/24 07/02/24 07/03/24 22:00 23:00 00:00 Temperature Pulse Rate 46 L 47 L 45 L Respiratory 16 16 15 Rate Blood Pressure 93/44 101/51 113/73 O2 Sat by Pulse 95 96 95 Oximetry 07/03/24 07/03/24 07/03/24 01:14 02:47 03:46 Temperature 98.2 F Pulse Rate 47 L 58 L 54 L Respiratory 16 16 18 Rate Blood Pressure 103/65 103/60 101/63 O2 Sat by Pulse 96 97 97 Oximetry - Reevaluation(s) Reevaluation #1: 06/30/24 13:46 Medical records reviewed Reevaluation #2: 06/30/24 13:46 Patient symptoms unchanged Reevaluation #3: 06/30/24 13:46 Patient informed of results and questions answered Reevaluation #4: Was pt. sent in by a medical professional or institution (, MAHESH, [employer], urgent care, hospital, or penitentiary...) When possible be specific @ -no Did you speak to anyone other than the patient for history (EMS, parent, family, police, friend...)? What history was obtained from this source @ -no Did you review nursing and triage notes (agree or disagree)? Why? @ -agree Are old charts reviewed (outside hosp., previous admission, EMS record, old EKG, old radiological studies, urgent care reports/EKG's, penitentiary records)? Report findings @ -yes Differential Diagnosis (chest pain, altered mental status, abdominal pain women, abdominal pain men, vaginal bleeding, weakness, fever, dyspnea, syncope, headache, dizziness, GI bleed, back pain, seizure, CVA, palpatations, mental health, musculoskeletal)? @ -prior EKG interpreted by me (3pts min.). @ -yes X-rays interpreted by me (1pt min.). @ -Yes negative for acute disease CT interpreted by me (1pt min.). @ -no U/S interpreted by me (1pt. min.). @ -no What testing was considered but not performed or refused? (CT, X-rays, U/S, labs)? Why? @ -none What meds were considered but not given or refused? Why? @ -none Did you discuss the management of the patient with other professionals (professionals i.e. MAHESH Orellana, [employer]TER, lab, RT, psych nurse, social work manager, resin remover, teacher, corporate banking officer, lining caser)? Give summary @ -no Was smoking cessation discussed for >3mins.? @ -no Was critical care preformed (if so, how long)? @ -[id number] Were there social determinants of health that impacted care today? How? (Homelessness, low income, unemployed, alcoholism, drug addiction, transportation, low edu. Level, literacy, decrease access to med. care, shelter, rehab)? @ -none Was there de-escalation of care discussed even if they declined (Discuss DNR or withdrawal of care, Hospice)? DNR status @ -no What co-morbidities impacted this encounter? (DM, HTN, Smoking, COPD, CAD, Cancer, CVA, ARF, Chemo, Hep., AIDS, mental health diagnosis, sleep apnea, morbid obesity)? @ -none Was patient admitted / discharged? Hospital course, mention meds given and route, prescriptions, significant lab abnormalities, going to OR and other pert inent info. @ - 63 male to the ER for evaluation of positive GI bleed. Patient presents today for evaluation of black tarry stools for 2 days positive fecal occult blood test here in the ER low blood pressure and severe anemia, we do not have hemoglobin for transfusion but patient was transferred to , his doctors at [facility] Transferred Undiagnosed new problem with uncertain prognosis? @ -no Drug Therapy requiring intensive monitoring for toxicity (Heparin, Nitro, Insulin, Cardizem)? @ -no Were any procedures done? @ -no Diagnosis/symptom? @ -GI bleed she always Acute, or Chronic, or Acute on Chronic? @ -Acute Uncomplicated (without systemic symptoms) or Complicated (systemic symptoms)? @ -Complicated Side effects of treatment? @ -no Exacerbation, Progression, or Severe Exacerbation? @ -exacerbation Poses a threat to life or bodily function? How? (Chest pain, [place], [place], pneumonia, PE, COPD, DKA, ARF, appy, cholecystitis, CVA, Diverticulitis, Homicidal, Suicidal, threat to staff... and all critical care pts) @ -yes GI bleed Reevaluation #5: Differential GI Bleed: Esophageal varices, aortoenteric fistula, Samara-Phan, gastritis, peptic ulcer disease, diverticulosis, inflammatory bowel disease, hemorrhoids, fissure, colitis, malignancy, Meckel's diverticulum, this is not meant to be an all- inclusive list. - Consultations Consultation #1: Spoke with [facility] for admission and they are accepting Medical Decision Making - Medical Decision Making 63 male to the ER for evaluation of positive GI bleed. Patient presents today for evaluation of black tarry stools for 2 days positive fecal occult blood test here in the ER low blood pressure and severe anemia, we do not have hemoglobin for transfusion but patient was transferred to , his doctors at [facility] - Lab Data Result diagrams: 07/02/24 17:32 07/02/24 05:51 Lab Results 06/30/24 06/30/24 06/30/24 Range/Units 11:00 11:00 11:00 WBC 4.2 (3.8-10.6) k/uL RBC 2.30 L (4.30-5.90) m/uL Hgb 6.2 L* (13.0-17.5) gm/dL Hct 19.7 L* (39.0-53.0) % MCV 86.0 (80.0-100.0) fL MCH 27.1 (25.0-35.0) pg MCHC 31.5 (31.0-37.0) g/dL RDW 17.4 H (11.5-15.5) % Plt Count 37 L (150-450) k/uL MPV 9.7 Neutrophils % 82 % Lymphocytes % 8 % Monocytes % 7 % Eosinophils % 1 % Basophils % 0 % Neutrophils # 3.5 (1.3-7.7) k/uL Lymphocytes # 0.3 L (1.0-4.8) k/uL Monocytes # 0.3 (0-1.0) k/uL Eosinophils # 0.1 (0-0.7) k/uL Basophils # 0.0 (0-0.2) k/uL Manual Slide Review Performed Hypochromasia Moderate Poikilocytosis Slight Anisocytosis Slight PT 16.2 H (10.0-12.5) sec INR 1.6 H (<1.2) APTT 26.0 (22.0-30.0) sec Sodium 131 L (137-145) mmol/L Potassium 4.9 (3.5-5.1) mmol/L Chloride 101 (98-107) mmol/L Carbon Dioxide 18 L (22-30) mmol/L Anion Gap 12 mmol/L BUN 66 H (9-20) mg/dL Creatinine 1.63 H (0.66-1.25) mg/dL Est GFR (CKD-EPI)AfAm 50 (>60 ml/min/1.73 sqM) Est GFR (CKD-EPI)NonAf 44 (>60 ml/min/1.73 sqM) Glucose 200 H (74-99) mg/dL POC Glucose (mg/dL) (70-110) mg/dL POC Glu [employer] ID Estimated Ave Glu mg/dL mg/dL Hemoglobin A1c (<=6.0) % Lactic Ac Sepsis Rflx Plasma Lactic Acid Devang (0.7-2.0) mmol/L Calcium 8.2 L (8.4-10.2) mg/dL Phosphorus (2.5-4.5) mg/dL Magnesium (1.6-2.3) mg/dL Total Bilirubin 1.6 H (0.2-1.3) mg/dL AST 25 (17-59) U/L ALT 19 (4-49) U/L Alkaline Phosphatase 59 (38-126) U/L Ammonia (<30) umol/L Troponin I (0.000-0.034) ng/mL Total Protein 6.2 L (6.3-8.2) g/dL Albumin 3.0 L (3.5-5.0) g/dL Stool Occult Blood (Negative) Blood Type Blood Type Recheck Bld Type Recheck Status Antibody Screen Antibody Identification Direct Antiglob Test Crossmatch Transfuse Platelets Blood Bank Comment Reference Lab Result Spec Expiration Date 06/30/24 06/30/24 06/30/24 Range/Units 11:00 11:23 11:45 WBC (3.8-10.6) k/uL RBC (4.30-5.90) m/uL Hgb (13.0-17.5) gm/dL Hct (39.0-53.0) % MCV (80.0-100.0) fL MCH (25.0-35.0) pg MCHC (31.0-37.0) g/dL RDW (11.5-15.5) % Plt Count (150-450) k/uL MPV Neutrophils % % Lymphocytes % % Monocytes % % Eosinophils % % Basophils % % Neutrophils # (1.3-7.7) k/uL Lymphocytes # (1.0-4.8) k/uL Monocytes # (0-1.0) k/uL Eosinophils # (0-0.7) k/uL Basophils # (0-0.2) k/uL Manual Slide Review Hypochromasia Poikilocytosis Anisocytosis PT (10.0-12.5) sec INR (<1.2) APTT (22.0-30.0) sec Sodium (137-145) mmol/L Potassium (3.5-5.1) mmol/L Chloride (98-107) mmol/L Carbon Dioxide (22-30) mmol/L Anion Gap mmol/L BUN (9-20) mg/dL Creatinine (0.66-1.25) mg/dL Est GFR (CKD-EPI)AfAm (>60 ml/min/1.73 sqM) Est GFR (CKD-EPI)NonAf (>60 ml/min/1.73 sqM) Glucose (74-99) mg/dL POC Glucose (mg/dL) (70-110) mg/dL POC Glu [employer] ID Estimated Ave Glu mg/dL mg/dL Hemoglobin A1c (<=6.0) % Lactic Ac Sepsis Rflx Plasma Lactic Acid Devang (0.7-2.0) mmol/L Calcium (8.4-10.2) mg/dL Phosphorus 3.4 (2.5-4.5) mg/dL Magnesium 2.1 (1.6-2.3) mg/dL Total Bilirubin (0.2-1.3) mg/dL AST (17-59) U/L ALT (4-49) U/L Alkaline Phosphatase (38-126) U/L Ammonia (<30) umol/L Troponin I <0.012 (0.000-0.034) ng/mL Total Protein (6.3-8.2) g/dL Albumin (3.5-5.0) g/dL Stool Occult Blood (Negative) Blood Type O Positive Blood Type Recheck O Pos Bld Type Recheck Status No Antibody Screen POSITIVE Antibody Identification Clin Significant ABs Ruled Out Direct Antiglob Test Negative Crossmatch See Detail Transfuse Platelets Blood Bank Comment Cancelled Reference Lab Result Cancelled Spec Expiration Date 07/03/2024 - 234406/30/24 06/30/24 06/30/24 Range/Units 12:07 12:07 14:26 WBC (3.8-10.6) k/uL RBC (4.30-5.90) m/uL Hgb (13.0-17.5) gm/dL Hct (39.0-53.0) % MCV (80.0-100.0) fL MCH (25.0-35.0) pg MCHC (31.0-37.0) g/dL RDW (11.5-15.5) % Plt Count (150-450) k/uL MPV Neutrophils % % Lymphocytes % % Monocytes % % Eosinophils % % Basophils % % Neutrophils # (1.3-7.7) k/uL Lymphocytes # (1.0-4.8) k/uL Monocytes # (0-1.0) k/uL Eosinophils # (0-0.7) k/uL Basophils # (0-0.2) k/uL Manual Slide Review Hypochromasia Poikilocytosis Anisocytosis PT (10.0-12.5) sec INR (<1.2) APTT (22.0-30.0) sec Sodium (137-145) mmol/L Potassium (3.5-5.1) mmol/L Chloride (98-107) mmol/L Carbon Dioxide (22-30) mmol/L Anion Gap mmol/L BUN (9-20) mg/dL Creatinine (0.66-1.25) mg/dL Est GFR (CKD-EPI)AfAm (>60 ml/min/1.73 sqM) Est GFR (CKD-EPI)NonAf (>60 ml/min/1.73 sqM) Glucose (74-99) mg/dL POC Glucose (mg/dL) (70-110) mg/dL POC Glu [employer] ID Estimated Ave Glu mg/dL mg/dL Hemoglobin A1c (<=6.0) % Lactic Ac Sepsis Rflx Plasma Lactic Acid Devang 2.1 H* (0.7-2.0) mmol/L Calcium (8.4-10.2) mg/dL Phosphorus (2.5-4.5) mg/dL Magnesium (1.6-2.3) mg/dL Total Bilirubin (0.2-1.3) mg/dL AST (17-59) U/L ALT (4-49) U/L Alkaline Phosphatase (38-126) U/L Ammonia 56 H (<30) umol/L Troponin I (0.000-0.034) ng/mL Total Protein (6.3-8.2) g/dL Albumin (3.5-5.0) g/dL Stool Occult Blood Positive (Negative) Blood Type Blood Type Recheck Bld Type Recheck Status Antibody Screen Antibody Identification Direct Antiglob Test Crossmatch Transfuse Platelets Blood Bank Comment Reference Lab Result Spec Expiration Date 06/30/24 06/30/24 06/30/24 Range/Units 15:13 18:18 19:43 WBC (3.8-10.6) k/uL RBC (4.30-5.90) m/uL Hgb (13.0-17.5) gm/dL Hct (39.0-53.0) % MCV (80.0-100.0) fL MCH (25.0-35.0) pg MCHC (31.0-37.0) g/dL RDW (11.5-15.5) % Plt Count (150-450) k/uL MPV Neutrophils % % Lymphocytes % % Monocytes % % Eosinophils % % Basophils % % Neutrophils # (1.3-7.7) k/uL Lymphocytes # (1.0-4.8) k/uL Monocytes # (0-1.0) k/uL Eosinophils # (0-0.7) k/uL Basophils # (0-0.2) k/uL Manual Slide Review Hypochromasia Poikilocytosis Anisocytosis PT (10.0-12.5) sec INR (<1.2) APTT (22.0-30.0) sec Sodium (137-145) mmol/L Potassium (3.5-5.1) mmol/L Chloride (98-107) mmol/L Carbon Dioxide (22-30) mmol/L Anion Gap mmol/L BUN (9-20) mg/dL Creatinine (0.66-1.25) mg/dL Est GFR (CKD-EPI)AfAm (>60 ml/min/1.73 sqM) Est GFR (CKD-EPI)NonAf (>60 ml/min/1.73 sqM) Glucose (74-99) mg/dL POC Glucose (mg/dL) (70-110) mg/dL POC Glu [employer] ID Estimated Ave Glu mg/dL mg/dL Hemoglobin A1c (<=6.0) % Lactic Ac Sepsis Rflx Y Plasma Lactic Acid Devang 1.5 (0.7-2.0) mmol/L Calcium (8.4-10.2) mg/dL Phosphorus (2.5-4.5) mg/dL Magnesium (1.6-2.3) mg/dL Total Bilirubin (0.2-1.3) mg/dL AST (17-59) U/L ALT (4-49) U/L Alkaline Phosphatase (38-126) U/L Ammonia (<30) umol/L Troponin I (0.000-0.034) ng/mL Total Protein (6.3-8.2) g/dL Albumin (3.5-5.0) g/dL Stool Occult Blood (Negative) Blood Type Blood Type Recheck Bld Type Recheck Status Antibody Screen Antibody Identification Direct Antiglob Test Crossmatch Transfuse Platelets 06/30/2024 Blood Bank Comment Reference Lab Result Spec Expiration Date 07/01/24 07/01/24 07/01/24 Range/Units 01:49 01:49 05:43 WBC 2.5 L (3.8-10.6) k/uL RBC 2.11 L (4.30-5.90) m/uL Hgb 6.0 L* (13.0-17.5) gm/dL Hct 18.1 L* (39.0-53.0) % MCV 86.0 (80.0-100.0) fL MCH 28.6 (25.0-35.0) pg MCHC 33.3 (31.0-37.0) g/dL RDW 17.4 H (11.5-15.5) % Plt Count 27 L (150-450) k/uL MPV 8.9 Neutrophils % 73 % Lymphocytes % 12 % Monocytes % 11 % Eosinophils % 2 % Basophils % 0 % Neutrophils # 1.8 (1.3-7.7) k/uL Lymphocytes # 0.3 L (1.0-4.8) k/uL Monocytes # 0.3 (0-1.0) k/uL Eosinophils # 0.0 (0-0.7) k/uL Basophils # 0.0 (0-0.2) k/uL Manual Slide Review Hypochromasia Moderate Poikilocytosis Slight Anisocytosis Slight PT (10.0-12.5) sec INR (<1.2) APTT (22.0-30.0) sec Sodium (137-145) mmol/L Potassium (3.5-5.1) mmol/L Chloride (98-107) mmol/L Carbon Dioxide (22-30) mmol/L Anion Gap mmol/L BUN (9-20) mg/dL Creatinine (0.66-1.25) mg/dL Est GFR (CKD-EPI)AfAm (>60 ml/min/1.73 sqM) Est GFR (CKD-EPI)NonAf (>60 ml/min/1.73 sqM) Glucose (74-99) mg/dL POC Glucose (mg/dL) (70-110) mg/dL POC Glu [employer] ID Estimated Ave Glu mg/dL 137 mg/dL Hemoglobin A1c 6.4 H (<=6.0) % Lactic Ac Sepsis Rflx Plasma Lactic Acid Devang (0.7-2.0) mmol/L Calcium (8.4-10.2) mg/dL Phosphorus (2.5-4.5) mg/dL Magnesium (1.6-2.3) mg/dL Total Bilirubin (0.2-1.3) mg/dL AST (17-59) U/L ALT (4-49) U/L Alkaline Phosphatase (38-126) U/L Ammonia (<30) umol/L Troponin I (0.000-0.034) ng/mL Total Protein (6.3-8.2) g/dL Albumin (3.5-5.0) g/dL Stool Occult Blood (Negative) Blood Type Blood Type Recheck Bld Type Recheck Status Antibody Screen Antibody Identification Direct Antiglob Test Crossmatch Transfuse Platelets 07/01/24 Blood Bank Comment Reference Lab Result Spec Expiration Date 07/01/24 07/01/24 07/01/24 Range/Units 05:50 07:32 09:26 WBC 2.9 L (3.8-10.6) k/uL RBC 2.43 L (4.30-5.90) m/uL Hgb 6.9 L* (13.0-17.5) gm/dL Hct 21.7 L (39.0-53.0) % MCV 89.2 (80.0-100.0) fL MCH 28.3 (25.0-35.0) pg MCHC 31.7 (31.0-37.0) g/dL RDW 16.2 H (11.5-15.5) % Plt Count 32 L (150-450) k/uL MPV 9.2 Neutrophils % 78 % Lymphocytes % 8 % Monocytes % 9 % Eosinophils % 2 % Basophils % 0 % Neutrophils # 2.2 (1.3-7.7) k/uL Lymphocytes # 0.2 L (1.0-4.8) k/uL Monocytes # 0.3 (0-1.0) k/uL Eosinophils # 0.1 (0-0.7) k/uL Basophils # 0.0 (0-0.2) k/uL Manual Slide Review Hypochromasia Marked Poikilocytosis Slight Anisocytosis Slight PT (10.0-12.5) sec INR (<1.2) APTT (22.0-30.0) sec Sodium (137-145) mmol/L Potassium (3.5-5.1) mmol/L Chloride (98-107) mmol/L Carbon Dioxide (22-30) mmol/L Anion Gap mmol/L BUN (9-20) mg/dL Creatinine (0.66-1.25) mg/dL Est GFR (CKD-EPI)AfAm (>60 ml/min/1.73 sqM) Est GFR (CKD-EPI)NonAf (>60 ml/min/1.73 sqM) Glucose (74-99) mg/dL POC Glucose (mg/dL) 140 H (70-110) mg/dL POC Glu [employer] ID [place] [address] Glu mg/dL mg/dL Hemoglobin A1c (<=6.0) % Lactic Ac Sepsis Rflx Plasma Lactic Acid Devang (0.7-2.0) mmol/L Calcium (8.4-10.2) mg/dL Phosphorus (2.5-4.5) mg/dL Magnesium (1.6-2.3) mg/dL Total Bilirubin (0.2-1.3) mg/dL AST (17-59) U/L ALT (4-49) U/L Alkaline Phosphatase (38-126) U/L Ammonia (<30) umol/L Troponin I (0.000-0.034) ng/mL Total Protein (6.3-8.2) g/dL Albumin (3.5-5.0) g/dL Stool Occult Blood (Negative) Blood Type O Positive Blood Type Recheck O Pos Bld Type Recheck Status No Antibody Screen POSITIVE Antibody Identification Clin Significant ABs Ruled Out Direct Antiglob Test Negative Crossmatch See Detail Transfuse Platelets Blood Bank Comment Reference Lab Result Spec Expiration Date 07/04/2024 - 234907/01/24 07/01/24 07/01/24 Range/Units 09:26 12:23 15:50 WBC (3.8-10.6) k/uL RBC (4.30-5.90) m/uL Hgb (13.0-17.5) gm/dL Hct (39.0-53.0) % MCV (80.0-100.0) fL MCH (25.0-35.0) pg MCHC (31.0-37.0) g/dL RDW (11.5-15.5) % Plt Count (150-450) k/uL MPV Neutrophils % % Lymphocytes % % Monocytes % % Eosinophils % % Basophils % % Neutrophils # (1.3-7.7) k/uL Lymphocytes # (1.0-4.8) k/uL Monocytes # (0-1.0) k/uL Eosinophils # (0-0.7) k/uL Basophils # (0-0.2) k/uL Manual Slide Review Hypochromasia Poikilocytosis Anisocytosis PT (10.0-12.5) sec INR (<1.2) APTT (22.0-30.0) sec Sodium 132 L (137-145) mmol/L Potassium 5.2 H (3.5-5.1) mmol/L Chloride 102 (98-107) mmol/L Carbon Dioxide 19 L (22-30) mmol/L Anion Gap 11 mmol/L BUN 55 H (9-20) mg/dL Creatinine 1.34 H (0.66-1.25) mg/dL Est GFR (CKD-EPI)AfAm 64 (>60 ml/min/1.73 sqM) Est GFR (CKD-EPI)NonAf 56 (>60 ml/min/1.73 sqM) Glucose 204 H (74-99) mg/dL POC Glucose (mg/dL) 252 H (70-110) mg/dL POC Glu [employer]itation Truck [employer]er ID Anabel Mancia Estimated Ave Glu mg/dL mg/dL Hemoglobin A1c (<=6.0) % Lactic Ac Sepsis Rflx Plasma Lactic Acid Devang (0.7-2.0) mmol/L Calcium 7.9 L (8.4-10.2) mg/dL Phosphorus (2.5-4.5) mg/dL Magnesium (1.6-2.3) mg/dL Total Bilirubin 2.7 H (0.2-1.3) mg/dL AST 26 (17-59) U/L ALT 19 (4-49) U/L Alkaline Phosphatase 44 (38-126) U/L Ammonia (<30) umol/L Troponin I (0.000-0.034) ng/mL Total Protein 5.6 L (6.3-8.2) g/dL Albumin 2.7 L (3.5-5.0) g/dL Stool Occult Blood (Negative) Blood Type Blood Type Recheck Bld Type Recheck Status Antibody Screen Antibody Identification Direct Antiglob Test Crossmatch Transfuse Platelets 07/01/24 Blood Bank Comment Reference Lab Result Spec Expiration Date 07/01/24 07/01/24 07/02/24 Range/Units 16:59 20:43 01:05 WBC 3.0 L (3.8-10.6) k/uL RBC 2.55 L (4.30-5.90) m/uL Hgb 7.4 L (13.0-17.5) gm/dL Hct 22.0 L (39.0-53.0) % MCV 86.1 (80.0-100.0) fL MCH 29.0 (25.0-35.0) pg MCHC 33.7 (31.0-37.0) g/dL RDW 17.5 H (11.5-15.5) % Plt Count 32 L (150-450) k/uL MPV 8.7 Neutrophils % 74 % Lymphocytes % 9 % Monocytes % 10 % Eosinophils % 2 % Basophils % 0 % Neutrophils # 2.2 (1.3-7.7) k/uL Lymphocytes # 0.3 L (1.0-4.8) k/uL Monocytes # 0.3 (0-1.0) k/uL Eosinophils # 0.1 (0-0.7) k/uL Basophils # 0.0 (0-0.2) k/uL Manual Slide Review Hypochromasia Moderate Poikilocytosis Slight Anisocytosis Slight PT (10.0-12.5) sec INR (<1.2) APTT (22.0-30.0) sec Sodium (137-145) mmol/L Potassium (3.5-5.1) mmol/L Chloride (98-107) mmol/L Carbon Dioxide (22-30) mmol/L Anion Gap mmol/L BUN (9-20) mg/dL Creatinine (0.66-1.25) mg/dL Est GFR (CKD-EPI)AfAm (>60 ml/min/1.73 sqM) Est GFR (CKD-EPI)NonAf (>60 ml/min/1.73 sqM) Glucose (74-99) mg/dL POC Glucose (mg/dL) 140 H 158 H (70-110) mg/dL POC Glu [employer] Truck Cleaner ID Mariotom Jara DADA MORALESNA [address]imated [address] Glu mg/dL mg/dL Hemoglobin A1c (<=6.0) % Lactic Ac Sepsis Rflx Plasma Lactic Acid Devang (0.7-2.0) mmol/L Calcium (8.4-10.2) mg/dL Phosphorus (2.5-4.5) mg/dL Magnesium (1.6-2.3) mg/dL Total Bilirubin (0.2-1.3) mg/dL AST (17-59) U/L ALT (4-49) U/L Alkaline Phosphatase (38-126) U/L Ammonia (<30) umol/L Troponin I (0.000-0.034) ng/mL Total Protein (6.3-8.2) g/dL Albumin (3.5-5.0) g/dL Stool Occult Blood (Negative) Blood Type Blood Type Recheck Bld Type Recheck Status Antibody Screen Antibody Identification Direct Antiglob Test Crossmatch Transfuse Platelets Blood Bank Comment Reference Lab Result Spec Expiration Date 07/02/24 07/02/24 07/02/24 Range/Units 01:05 05:51 05:51 WBC 2.8 L (3.8-10.6) k/uL RBC 2.54 L (4.30-5.90) m/uL Hgb 7.2 L (13.0-17.5) gm/dL Hct 22.0 L (39.0-53.0) % MCV 86.6 (80.0-100.0) fL MCH 28.5 (25.0-35.0) pg MCHC 33.0 (31.0-37.0) g/dL RDW 16.3 H (11.5-15.5) % Plt Count 30 L (150-450) k/uL MPV 9.7 Neutrophils % % Lymphocytes % % Monocytes % % Eosinophils % % Basophils % % Neutrophils # (1.3-7.7) k/uL Lymphocytes # (1.0-4.8) k/uL Monocytes # (0-1.0) k/uL Eosinophils # (0-0.7) k/uL Basophils # (0-0.2) k/uL Manual Slide Review Hypochromasia Marked Poikilocytosis Slight Anisocytosis Slight PT (10.0-12.5) sec INR (<1.2) APTT (22.0-30.0) sec Sodium 132 L 132 L (137-145) mmol/L Potassium 4.5 4.6 (3.5-5.1) mmol/L Chloride 104 104 (98-107) mmol/L Carbon Dioxide 20 L 22 (22-30) mmol/L Anion Gap 8 6 mmol/L BUN 53 H 52 H (9-20) mg/dL Creatinine 1.42 H 1.52 H (0.66-1.25) mg/dL Est GFR (CKD-EPI)AfAm 60 55 (>60 ml/min/1.73 sqM) Est GFR (CKD-EPI)NonAf 52 48 (>60 ml/min/1.73 sqM) Glucose 124 H 132 H (74-99) mg/dL POC Glucose (mg/dL) (70-110) mg/dL POC Glu [employer] Cleaner ID Estimated Ave Glu mg/dL mg/dL Hemoglobin A1c (<=6.0) % Lactic Ac Sepsis Rflx Plasma Lactic Acid Devang (0.7-2.0) mmol/L Calcium 8.1 L 8.1 L (8.4-10.2) mg/dL Phosphorus (2.5-4.5) mg/dL Magnesium (1.6-2.3) mg/dL Total Bilirubin 2.2 H (0.2-1.3) mg/dL AST 24 (17-59) U/L ALT 18 (4-49) U/L Alkaline Phosphatase 50 (38-126) U/L Ammonia (<30) umol/L Troponin I (0.000-0.034) ng/mL Total Protein 5.8 L (6.3-8.2) g/dL Albumin 2.7 L (3.5-5.0) g/dL Stool Occult Blood (Negative) Blood Type Blood Type Recheck Bld Type Recheck Status Antibody Screen Antibody Identification Direct Antiglob Test Crossmatch Transfuse Platelets Blood Bank Comment Reference Lab Result Spec Expiration Date 07/02/24 07/02/24 07/02/24 Range/Units 07:49 11:42 11:52 WBC (3.8-10.6) k/uL RBC (4.30-5.90) m/uL Hgb (13.0-17.5) gm/dL Hct (39.0-53.0) % MCV (80.0-100.0) fL MCH (25.0-35.0) pg MCHC (31.0-37.0) g/dL RDW (11.5-15.5) % Plt Count (150-450) k/uL MPV Neutrophils % % Lymphocytes % % Monocytes % % Eosinophils % % Basophils % % Neutrophils # (1.3-7.7) k/uL Lymphocytes # (1.0-4.8) k/uL Monocytes # (0-1.0) k/uL Eosinophils # (0-0.7) k/uL Basophils # (0-0.2) k/uL Manual Slide Review Hypochromasia Poikilocytosis Anisocytosis PT (10.0-12.5) sec INR (<1.2) APTT (22.0-30.0) sec Sodium (137-145) mmol/L Potassium (3.5-5.1) mmol/L Chloride (98-107) mmol/L Carbon Dioxide (22-30) mmol/L Anion Gap mmol/L BUN (9-20) mg/dL Creatinine (0.66-1.25) mg/dL Est GFR (CKD-EPI)AfAm (>60 ml/min/1.73 sqM) Est GFR (CKD-EPI)NonAf (>60 ml/min/1.73 sqM) Glucose (74-99) mg/dL POC Glucose (mg/dL) 168 H 278 H (70-110) mg/dL POC Glu Sanitation Truck Cleaner ID August [address]imated [address] Glu mg/dL mg/dL Hemoglobin A1c (<=6.0) % Lactic Ac Sepsis Rflx Plasma Lactic Acid Devang (0.7-2.0) mmol/L Calcium (8.4-10.2) mg/dL Phosphorus (2.5-4.5) mg/dL Magnesium (1.6-2.3) mg/dL Total Bilirubin (0.2-1.3) mg/dL AST (17-59) U/L ALT (4-49) U/L Alkaline Phosphatase (38-126) U/L Ammonia (<30) umol/L Troponin I (0.000-0.034) ng/mL Total Protein (6.3-8.2) g/dL Albumin (3.5-5.0) g/dL Stool Occult Blood (Negative) Blood Type Blood Type Recheck Bld Type Recheck Status Antibody Screen Antibody Identification Direct Antiglob Test Crossmatch Transfuse Platelets 07/03/24 Blood Bank Comment Reference Lab Result Spec Expiration Date 07/02/24 07/02/24 07/02/24 Range/Units 16:48 17:32 20:06 WBC 3.6 L (3.8-10.6) k/uL RBC 2.75 L (4.30-5.90) m/uL Hgb 7.7 L (13.0-17.5) gm/dL Hct 24.4 L (39.0-53.0) % MCV 88.7 (80.0-100.0) fL MCH 27.8 (25.0-35.0) pg MCHC 31.3 (31.0-37.0) g/dL RDW 16.3 H (11.5-15.5) % Plt Count 38 L (150-450) k/uL MPV 9.4 Neutrophils % % Lymphocytes % % Monocytes % % Eosinophils % % Basophils % % Neutrophils # (1.3-7.7) k/uL Lymphocytes # (1.0-4.8) k/uL Monocytes # (0-1.0) k/uL Eosinophils # (0-0.7) k/uL Basophils # (0-0.2) k/uL Manual Slide Review Hypochromasia Marked Poikilocytosis Slight Anisocytosis Slight PT (10.0-12.5) sec INR (<1.2) APTT (22.0-30.0) sec Sodium (137-145) mmol/L Potassium (3.5-5.1) mmol/L Chloride (98-107) mmol/L Carbon Dioxide (22-30) mmol/L Anion Gap mmol/L BUN (9-20) mg/dL Creatinine (0.66-1.25) mg/dL Est GFR (CKD-EPI)AfAm (>60 ml/min/1.73 sqM) Est GFR (CKD-EPI)NonAf (>60 ml/min/1.73 sqM) Glucose (74-99) mg/dL POC Glucose (mg/dL) 165 H 198 H (70-110) mg/dL POC Glu Sanitation Truck Cleaner ID Oswaldoaugust Safia Benton [address] Glu mg/dL mg/dL Hemoglobin A1c (<=6.0) % Lactic Ac Sepsis Rflx Plasma Lactic Acid Devang (0.7-2.0) mmol/L Calcium (8.4-10.2) mg/dL Phosphorus (2.5-4.5) mg/dL Magnesium (1.6-2.3) mg/dL Total Bilirubin (0.2-1.3) mg/dL AST (17-59) U/L ALT (4-49) U/L Alkaline Phosphatase (38-126) U/L Ammonia (<30) umol/L Troponin I (0.000-0.034) ng/mL Total Protein (6.3-8.2) g/dL Albumin (3.5-5.0) g/dL Stool Occult Blood (Negative) Blood Type Blood Type Recheck Bld Type Recheck Status Antibody Screen Antibody Identification Direct Antiglob Test Crossmatch Transfuse Platelets Blood Bank Comment Reference Lab Result Spec Expiration Date - EKG Data -: EKG Interpreted by Me (EKG is sinus 65 [place] 187 QRS 107 QTc 497) - Radiology Data Radiology results: report reviewed (Chest x-ray is negative for acute disease), image reviewed Critical Care Time Critical Care Time: Yes Total Critical Care Time: 31 Disposition Clinical Impression: Melena, Anemia, Hypotension, GI bleed, Altered mental status Disposition: OTHER INSTITUTION NOT DEFINED Condition: Critical Is patient prescribed a controlled substance at d/c from ED?: No Referrals: Rishabh Koenig DO [Primary Care Provider] - 1-2 days Time of Disposition: 22:20 - Out of Hospital Transfer - Req. Specs Out of Hospital Transfer - Requested Specifics: Other Emergency Center ([facility])
--- NOTE | 2024-06-30 11:41 | XR ---
EXAMINATION TYPE: XR chest 2V DATE OF EXAM: 06/30/2024 11:29 AM COMPARISON: Chest radiographs from 07/27/2022 TECHNIQUE: XR chest 2V Frontal and lateral views of the chest. CLINICAL INDICATION:Male, 63 years old with history of Weakness; FINDINGS: Lungs/Pleura: There is no evidence of pleural effusion, focal consolidation, or pneumothorax. Pulmonary vascularity: Unremarkable. Heart/mediastinum: Cardiomediastinal silhouette is unremarkable. Atherosclerotic calcifications are seen in the aorta. Musculoskeletal: No acute osseous pathology. IMPRESSION: No acute cardiopulmonary disease/process. [facility], , 06/30/2024 11:38 AM
[2024-06-30 11:55] LABS: Anisocytosis Slight; Basophils % (A) 0 %; Eosinophils # (A) 0.1 k/uL (0-0.7); Eosinophils % (A) 1 %; Hypochromasia Moderate; Lymphocytes # (A) 0.3 k/uL (1.0-4.8); Lymphocytes % (A) 8 %; MCH 27.1 pg (25.0-35.0); MCHC 31.5 g/dL (31.0-37.0); Mean Platelet Volume 9.7; Monocytes # (A) 0.3 k/uL (0-1.0); Monocytes % (A) 7 %; Neutrophils # (A) 3.5 k/uL (1.3-7.7); Neutrophils % (A) 82 %; Poikilocytosis Slight; RDW 17.4 % (11.5-15.5); WBC 4.2 k/uL (3.8-10.6)
[2024-06-30 11:55] LABS: Magnesium 2.1 mg/dL (1.6-2.3); Phosphorus 3.4 mg/dL (2.5-4.5)
[2024-06-30 11:57] LABS: ALT 19 U/L (4-49); AST 25 U/L (17-59); African American GFR (CKD) 50 (>60 ml/min/1.73 sqM); Alkaline Phosphatase 59 U/L (38-126); Anion Gap 12 mmol/L; Blood Urea Nitrogen 66 mg/dL (9-20); Calcium 8.2 mg/dL (8.4-10.2); Carbon Dioxide 18 mmol/L (22-30); Chloride 101 mmol/L (98-107); Glucose 200 mg/dL (74-99); Non-African American GFR(CKD) 44 (>60 ml/min/1.73 sqM); Potassium 4.9 mmol/L (3.5-5.1); Sodium 131 mmol/L (137-145); Total Bilirubin 1.6 mg/dL (0.2-1.3); Total Protein 6.2 g/dL (6.3-8.2)
[2024-06-30 11:58] LABS: HGB 6.2 gm/dL (13.0-17.5)
[2024-06-30 11:59] LABS: HCT 19.7 % (39.0-53.0); INR 1.6 (<1.2); Prothrombin Time 16.2 sec (10.0-12.5)
[2024-06-30 12:35] LABS: Platelet Count 37 k/uL (150-450)
[2024-06-30] MEDS: OCTREOTIDE 100 MCG/ML INJ IVP STA (15:44)
[2024-06-30] MEDS: SODIUM CHLORIDE 0.9% 500 ML 500 ML IV STA (15:48)
[2024-06-30] MEDS ORDERED: ALPRAZolam 0.25 MG TAB PO PRN (21:20)
[2024-06-30] MEDS ORDERED: MUPIROCIN 2% OINT 22 GM TUBE TOPICAL PRN (21:30)
[2024-06-30] MEDS ORDERED: HYDROCORTISONE 2.5% RECTAL CREAM 30 GM TUBE RECTAL PRN (21:30)
--- NOTE | 2024-06-30 21:34 | P.CONS ---
History of Present Illness - Reason for Consult Consult date: 06/30/24 - Chief Complaint Melanotic stools, abnormal lab values - History of Present Illness Patient is a 63-year-old male with a history of alcoholic liver cirrhosis (on the list for liver transplant), anxiety and depression comes to the ER with concerns for black tarry stools and abnormal lab values. Patient has been consulted for medical management by the internal medicine service while pending transfer to [facility] in [place]. Patient has been having black tarry stools for last 2 to 3 weeks with 2-3 bowel movements per day. Patient denies any bright red per rectum and hematemesis. Patient saw his brass burnisher at [facility] in [place] (Dr. Cordova) for follow-up 2 days ago where his blood was drawn for lab work. He received a call later in the day with concerns for abnormal lab values and was asked to go to the ER for further evaluation. However, patient did not find it come to the ER until today. Patient reports previous history of upper GI bleed due to his esophageal varices and had multiple procedures since in the past. His last band ligation was about 3 to 4 years ago. Patient also visits [facility] for his weekly paracentesis. His last paracentesis was 2 weeks ago with output of 8 L. According to patient, he was supposed to get his paracentesis done tomorrow. Additionally, patient has been feeling tired, fatigue associated with mild lightheadedness for last 2 to 3 weeks. Denies loss of consciousness, abnormal gait or fall. Patient is currently on the list for liver transplant at [facility]. Prophylactically he is on Bactrim for spontaneous bacterial peritonitis and propranolol for esophageal varices. Lately, he has been unable to get a refill for some of his medications because " his doctor did not call any pharma cy". Otherwise patient denies fever, chills, nausea, vomiting, abdominal pain, chest pain, shortness of breath, numbness or tingling in upper or lower extremities. Laboratory data: WBC 4.2, hemoglobin 6.2, hematocrit 19.7, platelet count 37, PT 16.2, INR 1.6, APTT 26, sodium 131, potassium 4.9, chloride 101, bicarb 18, BUN 66, creatinine 1.63, glucose 200, lactic acid 2.1, total bili 1.6, AST 25, ALT 90, ALP 59, ammonia 56, albumin 3.0 Images: Chest x-ray done in the ER chest x-ray in the ER interpreted independently shows no acute cardiopulmonary process EKG done in the ER interpreted independently shows normal sinus rhythm ventricular rate of 65 bpm. CA interval 187 ms. QRS duration 107/s. QTc 497 ms. Right bundle branch block and poor R wave noted. Vitals: Vitals on arrival: Temperature 95.5 F, heart rate 69, respiration rate 20, blood pressure 88/53, oxygen saturation 100% on room air Review of systems: Pertinent positives and negatives as discussed in HPI, a complete review of systems was performed and all other systems are negative. Social history: Tobacco: Former smoker Alcohol: Former heavy drinker quit 12 years ago Recreational drugs: None Travel: None Occupation: Unknown Family History: Unknown Physical examination: Vital signs reviewed General: non toxic, no distress, appears older than stated age, underweight and emaciated Derm: Hyperpigmented skin discoloration noted on both upper extremities Head: atraumatic, normocephalic, symmetric Eyes: EOMI, icteric sclera, pupils equal round reactive to light ENT: Nose and ears atraumatic Neck: No cervical lymphadenopathy, trachea midline, supple Mouth: no lip lesion, mucus membranes moist Cardiovascular: S1S2 reg, no murmur, positive dorsalis pedis pulse bilateral, no edema Lungs: CTA bilateral, no rhonchi, no rales, no accessory muscle use Abdominal: Protuberant abdomen with caput medusa noted. Fluid wave test positive. No rebound tenderness. No guarding. No abdominal tenderness Ext: muscle strength 5 out of 5 in all 4 extremities grossly, gross muscle atrophy noted on both upper and lower extremities Neuro: CN II-XI grossly intact, no gross focal neuro deficits, no tremors noted Psych: Alert, oriented, appropriate affect Assessment/Plan: This is a Patient is a 63-year-old male with a history of alcoholic liver cirrhosis (on the list for liver transplant), anxiety and depression comes to the ER with concerns for black tarry stools and abnormal lab values. Patient has been consulted for medical management by the internal medicine service while pending transfer to [facility] in [place]. Case was discussed with the Emergency Room provider and decision was made to admit the patient for medical management for the patient with alcoholic liver cirrhosis pending transfer to [facility]. #Suspected Upper GI bleed in the setting of decompensated alcoholic liver cirrhosis and esophageal varices #Symptomatic normocytic anemia #Ascites #Severe thrombocytopenia #Hyperammonemia #Hypoalbuminemia hemoglobin 6.2, hematocrit 19.7, platelet count 37, BUN 66, ammonium 56, albumin 3.0 Platelet count 37 Order 1 unit of packed RBC and 1 unit of platelets; target hemoglobin >7 and platelet count > 50,000 Monitor CBC every 6 hours Patient received octreotide 50 mcg IVP once stat in ED Patient received a bolus of half a liter of IV normal saline in ED Patient has a child Brambila class B: Resume oral Bactrim DS 800-160 mg p.o. daily MELD-Na score: 23 points Resume rifaximin 550 mg p.o. twice daily Continue monitor CMP Patient to be transferred to [facility] for tertiary care Consult IR for paracentesis Order midodrine 5 mg p.o. 3 times daily Initiate Octreotide infusion #Coagulopathy secondary to liver cirrhosis PT 16.2, INR 1.6, APTT 26.0, #Hypervolemic hyponatremia secondary to liver cirrhosis Sodium 131 Continue monitor sodium level # NIA on CKD stage IIIb in the setting of UGIB and possible hepatorenal syndrome BUN 66 and creatinine 1.63 on admission No recent baseline for creatinine and GFR Creatinine 0.9 and GFR 88.9 on 09/30/2022 Hold diuretics Repeat BMP Avoid nephrotoxic drugs #Hyperglycemia Serum glucose 200 Accu-Chek Scale insulin Monitor for hypoglycemia Check HbA1c #Elevated total bilirubin likely hepatobiliary etiology Total bili 1.6, AST 25, ALT 19, ALP 59 Continue to monitor Chronic conditions: Hemorrhoids: Resume ProctosolHC 2.5% twice daily as needed Dermatitis: Resume mupirocin 2% ointment topical twice daily. DVT prophylaxis: Mechanical DVT prophylaxis with SCDs GI prophylaxis: None F: P.o. E: Electrolyte replete as needed N: Heart healthy diet A: Ambulatory at baseline Dictation was produced using [employer] dictation software. Please excuse any grammatical, word or spelling errors. Past Medical History Past Medical History: GERD/Reflux, Liver Disease Additional Past Medical History / Comment(s): 12/20/15 Pt was admitted to [facility] ICU and found to have acute mesenteric ischemia and thrombosis of R hemicolon-he also had massive splenomegaly-he was transfered to [facility] and he states he is now on the liver transplant list. Other hx: anemia, thrombocytopenia, cirrhosis, hepatitis c stated was tx 7 years ago, esophageal varices with surgery, chronic diarrhea. pt states that his last drink was 10-12 years ago History of Any Multi-Drug Resistant Organisms: None Reported Past Surgical History: Hernia Repair, Tonsillectomy Additional Past Surgical History / Comment(s): EGD's, esophageal banding(d/t esophageal varacies), cherelle inguinal hernia, colonoscopy-polyps removed were benign. Past Anesthesia/Blood Transfusion Reactions: No Reported Reaction Past Psychological History: Anxiety Smoking Status: Former smoker, Unknown if ever smoked Past Alcohol Use History: Rare Past Drug Use History: Marijuana - Past Family History Mother Family Medical History: No Reported History Additional Family Medical History / Comment(s): Mother at the age of 92 yrs. Father Additional Family Medical History / Comment(s): smoked/drank had lung disease. Father at the age of 78yrs. Medications and Allergies Home Medications Medication Instructions Recorded Confirmed Type RX: Propranolol [Inderal] 10 mg PO BID 03/30/14 06/30/24 History RX: Rifaximin [Xifaxan] 550 mg PO BID 11/03/19 06/30/24 History RX: Furosemide [Lasix] 80 mg PO DAILY 07/27/22 06/30/24 History RX: Spironolactone [Aldactone] 200 mg PO DAILY 07/27/22 06/30/24 History ALPRAZolam [Xanax] 0.25 mg PO Q8H PRN 06/30/24 06/30/24 History Hydrocortisone Pr Cream 1 applic RECTAL BID PRN 06/30/24 06/30/24 History [Proctosol-Hc 2.5%] Lipase/Protease/Amylase [Creon Dr 3 cap PO TID 06/30/24 06/30/24 History 24,000 Units Capsule] Mupirocin 2% Oint [Bactroban 2% 1 applic TOPICAL BID PRN 06/30/24 06/30/24 History Oint] RX: ursodioL [Ursodiol] 300 mg PO BID 06/30/24 06/30/24 History Sulfamethox-Tmp 800-160Mg [Bactrim 1 tab PO DAILY 06/30/24 06/30/24 History DS 800-160 mg] Allergies Allergy/AdvReac Type Severity Reaction Status Date / Time Iodinated Contrast Media Allergy Swelling Verified 06/30/24 10:41 [Iodinated Contrast Media - IV Dye] shellfish derived [Shrimp] Allergy Unknown Verified 06/30/24 10:41 Physical Exam Vitals: Vital Signs Temp Pulse Resp BP Pulse Ox 06/30/24 20:17 98.1 F 62 17 84/51 100 06/30/24 20:07 97.9 F 65 19 81/49 98 06/30/24 18:30 24 77/44 06/30/24 18:00 65 17 79/42 06/30/24 17:30 64 13 70/43 06/30/24 17:00 64 14 93/58 06/30/24 16:30 61 13 91/48 06/30/24 15:51 59 L 16 87/42 96 06/30/24 15:30 66 15 81/41 98 06/30/24 15:00 67 16 87/49 100 06/30/24 14:30 66 15 90/49 100 06/30/24 14:00 65 16 102/54 06/30/24 13:30 20 102/64 06/30/24 13:00 67 22 95/61 06/30/24 12:30 66 17 87/52 06/30/24 12:21 65 16 87/82 99 06/30/24 11:30 102/59 06/30/24 11:00 16 96/48 87 L 06/30/24 10:17 97.5 F L 69 20 88/53 100 Intake and Output 06/30/24 06/30/24 06/30/24 06:59 14:59 22:59 Intake Total 0 Balance 0 Intake: Blood Product 0 Platelet Pheresis Pas 0 Psoralen Unit [id number] Other: Weight 58.967 kg Results CBC & Chem 7: 07/01/24 01:49 06/30/24 11:00 Labs: Abnormal Lab Results - Last 24 Hours (Table) 06/30/24 06/30/24 06/30/24 Range/Units 11:00 11:00 11:00 RBC 2.30 L (4.30-5.90) m/uL Hgb 6.2 L* (13.0-17.5) gm/dL Hct 19.7 L* (39.0-53.0) % RDW 17.4 H (11.5-15.5) % Plt Count 37 L (150-450) k/uL Lymphocytes # 0.3 L (1.0-4.8) k/uL PT 16.2 H (10.0-12.5) sec INR 1.6 H (<1.2) Sodium 131 L (137-145) mmol/L Carbon Dioxide 18 L (22-30) mmol/L BUN 66 H (9-20) mg/dL Creatinine 1.63 H (0.66-1.25) mg/dL Glucose 200 H (74-99) mg/dL Plasma Lactic Acid Devang (0.7-2.0) mmol/L Calcium 8.2 L (8.4-10.2) mg/dL Total Bilirubin 1.6 H (0.2-1.3) mg/dL Ammonia (<30) umol/L Total Protein 6.2 L (6.3-8.2) g/dL Albumin 3.0 L (3.5-5.0) g/dL Crossmatch 06/30/24 06/30/24 06/30/24 Range/Units 11:45 12:07 14:26 RBC (4.30-5.90) m/uL Hgb (13.0-17.5) gm/dL Hct (39.0-53.0) % RDW (11.5-15.5) % Plt Count (150-450) k/uL Lymphocytes # (1.0-4.8) k/uL PT (10.0-12.5) sec INR (<1.2) Sodium (137-145) mmol/L Carbon Dioxide (22-30) mmol/L BUN (9-20) mg/dL Creatinine (0.66-1.25) mg/dL Glucose (74-99) mg/dL Plasma Lactic Acid Devang 2.1 H* (0.7-2.0) mmol/L Calcium (8.4-10.2) mg/dL Total Bilirubin (0.2-1.3) mg/dL Ammonia 56 H (<30) umol/L Total Protein (6.3-8.2) g/dL Albumin (3.5-5.0) g/dL Crossmatch See Detail
[2024-06-30] MEDS: ursodioL 300 MG CAP PO SCH (21:56)
[2024-06-30] MEDS: RIFAXIMIN 550 MG TABLET PO SCH (21:56)
[2024-06-30] MEDS: NON FORMULARY DRUG (Lipase/Protease/Amylase [Creon Dr 24,000 Unit Capsule] 1 EACH Capsule) PO SCH (23:18)
[2024-07-01] MEDS: NON FORMULARY DRUG (Spironolactone [Aldactone] 100 MG Tablet) PO SCH (01:20)
[2024-07-01] MEDS: SULFAMETHOX-TMP 800-160MG 1 EACH TAB PO SCH (01:42)
[2024-07-01] MEDS: MIDODRINE 5 MG TAB PO SCH ×3 (01:51→08:00)
[2024-07-01 02:15] LABS: Anisocytosis Slight; Basophils % (A) 0 %; Eosinophils % (A) 2 %; Hypochromasia Moderate; Lymphocytes # (A) 0.3 k/uL (1.0-4.8); Lymphocytes % (A) 12 %; MCH 28.6 pg (25.0-35.0); MCHC 33.3 g/dL (31.0-37.0); Mean Platelet Volume 8.9; Monocytes # (A) 0.3 k/uL (0-1.0); Monocytes % (A) 11 %; Neutrophils # (A) 1.8 k/uL (1.3-7.7); Neutrophils % (A) 73 %; Platelet Count 27 k/uL (150-450); Poikilocytosis Slight; RBC 2.11 m/uL (4.30-5.90); RDW 17.4 % (11.5-15.5); WBC 2.5 k/uL (3.8-10.6)
[2024-07-01 02:24] LABS: HCT 18.1 % (39.0-53.0)
[2024-07-01] MEDS: OCTREOTIDE 500 MCG in SODIUM CHLORIDE 0.9% 250 ML IV ONE (05:56)
[2024-07-01] MEDS ORDERED: MIDODRINE 5 MG TAB PO SCH (07:30)
[2024-07-01 07:33] LABS: Glucose,Whole Blood 140 mg/dL (70-110)
[2024-07-01] MEDS: INSULIN ASPART (NovoLOG) 100 UNIT/ML VIAL SQ SCH (07:33)
[2024-07-01 09:47] LABS: Anisocytosis Slight; Basophils % (A) 0 %; Eosinophils # (A) 0.1 k/uL (0-0.7); Eosinophils % (A) 2 %; HCT 21.7 % (39.0-53.0); Hypochromasia Marked; Lymphocytes # (A) 0.2 k/uL (1.0-4.8); Lymphocytes % (A) 8 %; MCH 28.3 pg (25.0-35.0); MCHC 31.7 g/dL (31.0-37.0); MCV 89.2 fL (80.0-100.0); Mean Platelet Volume 9.2; Monocytes # (A) 0.3 k/uL (0-1.0); Monocytes % (A) 9 %; Neutrophils # (A) 2.2 k/uL (1.3-7.7); Neutrophils % (A) 78 %; Poikilocytosis Slight; RBC 2.43 m/uL (4.30-5.90); RDW 16.2 % (11.5-15.5); WBC 2.9 k/uL (3.8-10.6)
[2024-07-01 10:09] LABS: ALT 19 U/L (4-49); AST 26 U/L (17-59); African American GFR (CKD) 64 (>60 ml/min/1.73 sqM); Albumin 2.7 g/dL (3.5-5.0); Alkaline Phosphatase 44 U/L (38-126); Anion Gap 11 mmol/L; Blood Urea Nitrogen 55 mg/dL (9-20); Calcium 7.9 mg/dL (8.4-10.2); Carbon Dioxide 19 mmol/L (22-30); Chloride 102 mmol/L (98-107); Glucose 204 mg/dL (74-99); Non-African American GFR(CKD) 56 (>60 ml/min/1.73 sqM); Potassium 5.2 mmol/L (3.5-5.1); Sodium 132 mmol/L (137-145); Total Bilirubin 2.7 mg/dL (0.2-1.3); Total Protein 5.6 g/dL (6.3-8.2)
[2024-07-01 10:26] LABS: HGB 6.9 gm/dL (13.0-17.5); Platelet Count 32 k/uL (150-450)
--- NOTE | 2024-07-01 12:11 | P.PN ---
Subjective Progress Note Date: 07/01/24 Subjective: Patient seen and evaluated bedside. No acute complaints, patient eating in bed. Status post 2 units of PRBCs and platelets. Physical examination: Vital signs reviewed General: non toxic, no distress, appears older than stated age, underweight and emaciated Derm: Hyperpigmented skin discoloration noted on both upper extremities Head: atraumatic, normocephalic, symmetric Eyes: EOMI, icteric sclera, pupils equal round reactive to light ENT: Nose and ears atraumatic Neck: No cervical lymphadenopathy, trachea midline, supple Mouth: no lip lesion, mucus membranes moist Cardiovascular: S1S2 reg, no murmur, positive dorsalis pedis pulse bilateral, no edema Lungs: CTA bilateral, no rhonchi, no rales, no accessory muscle use Abdominal: Protuberant abdomen with caput medusa noted. Fluid wave test positive. No rebound tenderness. No guarding. No abdominal tenderness Ext: muscle strength 5 out of 5 in all 4 extremities grossly, gross muscle atrophy noted on both upper and lower extremities Neuro: CN II-XI grossly intact, no gross focal neuro deficits, no tremors noted Psych: Alert, oriented, appropriate affect Data received today: Pertinent Labs: WBC 3.5, Hgb 6.0, HCT 18.1, platelet 27, sodium 132, potassium 5.2, BUN 55, creatinine 1.34, glucose 204 Imaging: N/A Assessment/Plan: This is a Patient is a 63-year-old male with a history of alcoholic liver cirrhosis (on the list for liver transplant), anxiety and depression comes to the ER with concerns for black tarry stools and abnormal lab values. Patient has been consulted for medical management by the internal medicine service while pending transfer to [facility] in [place]. Case was discussed with the Emergency Room provider and decision was made to admit the patient for medical management for the patient with alcoholic liver cirrhosis pending transfer to [facility]. #Suspected Upper GI bleed in the setting of decompensated alcoholic liver ci rrhosis and esophageal varices #Symptomatic normocytic anemia #Ascites #Severe thrombocytopenia #Hyperammonemia #Hypoalbuminemia #Hypotension hemoglobin 6.2, hematocrit 19.7, platelet count 37, BUN 66, ammonium 56, albumin 3.0 on admission Platelet count 37 on admission s/p 2 unit of PRBCS and platelets, repeat Hgb 6.9, plt 32 ordered 1 unit of PRBCS and 1 unit plt continue to monitor Hgb and platelets: target hemoglobin >7 and platelet count > 50,000 Monitor CBC every 6 hours Patient received octreotide 50 mcg IVP once stat in ED Patient received a bolus of half a liter of IV normal saline in ED Patient has a child Brambila class B: Resume oral Bactrim DS 800-160 mg p.o. daily MELD-Na score: 23 points Resume rifaximin 550 mg p.o. twice daily Midodrine 5 mg p.o. 3 times daily Continue with Octreotide infusion IV 50 mcg/hr Consult IR for paracentesis Patient to be transferred to [facility] for tertiary care #Coagulopathy secondary to liver cirrhosis PT 16.2, INR 1.6, APTT 26.0, #Hypervolemic hyponatremia secondary to liver cirrhosis Sodium 132 Continue monitor sodium level # NIA on CKD stage IIIb in the setting of UGIB and possible hepatorenal syndrome BUN 66 and creatinine 1.63 on admission No recent baseline for creatinine and GFR Creatinine 0.9 and GFR 88.9 on 09/30/2022 Hold diuretics Repeat BMP Avoid nephrotoxic drugs #Hyperglycemia Serum glucose 200 Accu-Chek Scale insulin Monitor for hypoglycemia Check HbA1c #Elevated total bilirubin likely hepatobiliary etiology Total bili 1.6, AST 25, ALT 19, ALP 59 Continue to monitor Chronic conditions: Hemorrhoids: Resume ProctosolHC 2.5% twice daily as needed Dermatitis: Resume mupirocin 2% ointment topical twice daily. DVT prophylaxis: Mechanical DVT prophylaxis with SCDs GI prophylaxis: None F: P.o. E: Electrolyte replete as needed N: Heart healthy diet A: Ambulatory at baseline Dictation was produced using [employer] dictation software. Please excuse any grammatical, word or spelling errors. I saw and evaluated the patient during the keller and critical portions of this encounter, and discussed the case in detail with the resident author of this note, I agree with the Assessment and Plan, and my changes, if any, are highlighted below. Hg 6.9 this morning with plans to transfuse 1 PRBC. CBC Q8H ordered. Rocephin 1g IV QD started for prophylaxis. Continue Octreotide drip. Awaiting transfer to [facility]. Objective - Vital Signs Vital signs: Vital Signs Temp 98.4 F 07/01/24 07:59 Pulse 63 07/01/24 07:59 Resp 16 07/01/24 07:59 BP 86/58 07/01/24 07:59 Pulse Ox 98 07/01/24 07:59 FiO2 Intake & Output 06/30/24 07/01/24 07/01/24 18:59 06:59 18:59 Intake Total 817 0 Balance 817 0 Weight 58.967 kg Intake: Blood Product 817 0 Platelet Pheresis Pas 264 Psoralen Unit [id number] Platelet Pheresis Pas 0 Psoralen Unit [id number] Rc Pheresis 2 As3 Unit 284 [id number] Rc Pheresis 2 As3 Unit 269 [id number] - Labs CBC & Chem 7: 07/01/24 09:26 07/01/24 09:26 Labs: Abnormal Lab Results - Last 24 Hours (Table) 06/30/24 06/30/24 06/30/24 Range/Units 11:00 11:00 11:00 WBC (3.8-10.6) k/uL RBC 2.30 L (4.30-5.90) m/uL Hgb 6.2 L* (13.0-17.5) gm/dL Hct 19.7 L* (39.0-53.0) % RDW 17.4 H (11.5-15.5) % Plt Count 37 L (150-450) k/uL Lymphocytes # 0.3 L (1.0-4.8) k/uL PT 16.2 H (10.0-12.5) sec INR 1.6 H (<1.2) Sodium 131 L (137-145) mmol/L Carbon Dioxide 18 L (22-30) mmol/L BUN 66 H (9-20) mg/dL Creatinine 1.63 H (0.66-1.25) mg/dL Glucose 200 H (74-99) mg/dL POC Glucose (mg/dL) (70-110) mg/dL Hemoglobin A1c (<=6.0) % Plasma Lactic Acid Devang (0.7-2.0) mmol/L Calcium 8.2 L (8.4-10.2) mg/dL Total Bilirubin 1.6 H (0.2-1.3) mg/dL Ammonia (<30) umol/L Total Protein 6.2 L (6.3-8.2) g/dL Albumin 3.0 L (3.5-5.0) g/dL Crossmatch 06/30/24 06/30/24 06/30/24 Range/Units 11:45 12:07 14:26 WBC (3.8-10.6) k/uL RBC (4.30-5.90) m/uL Hgb (13.0-17.5) gm/dL Hct (39.0-53.0) % RDW (11.5-15.5) % Plt Count (150-450) k/uL Lymphocytes # (1.0-4.8) k/uL PT (10.0-12.5) sec INR (<1.2) Sodium (137-145) mmol/L Carbon Dioxide (22-30) mmol/L BUN (9-20) mg/dL Creatinine (0.66-1.25) mg/dL Glucose (74-99) mg/dL POC Glucose (mg/dL) (70-110) mg/dL Hemoglobin A1c (<=6.0) % Plasma Lactic Acid Devang 2.1 H* (0.7-2.0) mmol/L Calcium (8.4-10.2) mg/dL Total Bilirubin (0.2-1.3) mg/dL Ammonia 56 H (<30) umol/L Total Protein (6.3-8.2) g/dL Albumin (3.5-5.0) g/dL Crossmatch See Detail 07/01/24 07/01/24 07/01/24 Range/Units 01:49 01:49 07:32 WBC 2.5 L (3.8-10.6) k/uL RBC 2.11 L (4.30-5.90) m/uL Hgb 6.0 L* (13.0-17.5) gm/dL Hct 18.1 L* (39.0-53.0) % RDW 17.4 H (11.5-15.5) % Plt Count 27 L (150-450) k/uL Lymphocytes # 0.3 L (1.0-4.8) k/uL PT (10.0-12.5) sec INR (<1.2) Sodium (137-145) mmol/L Carbon Dioxide (22-30) mmol/L BUN (9-20) mg/dL Creatinine (0.66-1.25) mg/dL Glucose (74-99) mg/dL POC Glucose (mg/dL) 140 H (70-110) mg/dL Hemoglobin A1c 6.4 H (<=6.0) % Plasma Lactic Acid Devang (0.7-2.0) mmol/L Calcium (8.4-10.2) mg/dL Total Bilirubin (0.2-1.3) mg/dL Ammonia (<30) umol/L Total Protein (6.3-8.2) g/dL Albumin (3.5-5.0) g/dL Crossmatch
[2024-07-01 12:25] LABS: Glucose,Whole Blood 252 mg/dL (70-110)
[2024-07-01 17:00] LABS: Glucose,Whole Blood 140 mg/dL (70-110)
[2024-07-01 20:44] LABS: Glucose,Whole Blood 158 mg/dL (70-110)
[2024-07-02 01:18] LABS: Anisocytosis Slight; Basophils % (A) 0 %; Eosinophils # (A) 0.1 k/uL (0-0.7); Eosinophils % (A) 2 %; HGB 7.4 gm/dL (13.0-17.5); Hypochromasia Moderate; Lymphocytes # (A) 0.3 k/uL (1.0-4.8); Lymphocytes % (A) 9 %; MCHC 33.7 g/dL (31.0-37.0); MCV 86.1 fL (80.0-100.0); Mean Platelet Volume 8.7; Monocytes # (A) 0.3 k/uL (0-1.0); Monocytes % (A) 10 %; Neutrophils # (A) 2.2 k/uL (1.3-7.7); Neutrophils % (A) 74 %; Poikilocytosis Slight; RBC 2.55 m/uL (4.30-5.90); RDW 17.5 % (11.5-15.5)
[2024-07-02 01:23] LABS: Platelet Count 32 k/uL (150-450)
[2024-07-02 01:37] LABS: ALT 18 U/L (4-49); AST 24 U/L (17-59); African American GFR (CKD) 60 (>60 ml/min/1.73 sqM); Albumin 2.7 g/dL (3.5-5.0); Alkaline Phosphatase 50 U/L (38-126); Anion Gap 8 mmol/L; Blood Urea Nitrogen 53 mg/dL (9-20); Calcium 8.1 mg/dL (8.4-10.2); Carbon Dioxide 20 mmol/L (22-30); Chloride 104 mmol/L (98-107); Glucose 124 mg/dL (74-99); Non-African American GFR(CKD) 52 (>60 ml/min/1.73 sqM); Potassium 4.5 mmol/L (3.5-5.1); Sodium 132 mmol/L (137-145); Total Bilirubin 2.2 mg/dL (0.2-1.3); Total Protein 5.8 g/dL (6.3-8.2)
[2024-07-02] MEDS: OCTREOTIDE 500 MCG in SODIUM CHLORIDE 0.9% 250 ML IV ONE (03:55)
[2024-07-02 06:04] LABS: Anisocytosis Slight; HGB 7.2 gm/dL (13.0-17.5); Hypochromasia Marked; MCH 28.5 pg (25.0-35.0); MCV 86.6 fL (80.0-100.0); Mean Platelet Volume 9.7; Poikilocytosis Slight; RBC 2.54 m/uL (4.30-5.90); RDW 16.3 % (11.5-15.5); WBC 2.8 k/uL (3.8-10.6)
[2024-07-02 06:06] LABS: Platelet Count 30 k/uL (150-450)
[2024-07-02 06:16] LABS: African American GFR (CKD) 55 (>60 ml/min/1.73 sqM); Anion Gap 6 mmol/L; Blood Urea Nitrogen 52 mg/dL (9-20); Calcium 8.1 mg/dL (8.4-10.2); Carbon Dioxide 22 mmol/L (22-30); Chloride 104 mmol/L (98-107); Glucose 132 mg/dL (74-99); Non-African American GFR(CKD) 48 (>60 ml/min/1.73 sqM); Potassium 4.6 mmol/L (3.5-5.1); Sodium 132 mmol/L (137-145)
[2024-07-02 07:50] LABS: Glucose,Whole Blood 168 mg/dL (70-110)
[2024-07-02 11:54] LABS: Glucose,Whole Blood 278 mg/dL (70-110)
[2024-07-02] MEDS: MIDODRINE 5 MG TAB PO SCH (12:00)
--- NOTE | 2024-07-02 12:08 | P.PN ---
Subjective Progress Note Date: 07/02/24 Subjective: Patient seen and evaluated bedside. No acute complaints. Recommended possible transfer at [facility], however patient refused to be transferred there because most of his physicians are at [facility], states he would rather go home. Physical examination: Vital signs reviewed General: non toxic, no distress, appears older than stated age, underweight and emaciated Derm: Hyperpigmented skin discoloration noted on both upper extremities Head: atraumatic, normocephalic, symmetric Eyes: EOMI, icteric sclera, pupils equal round reactive to light ENT: Nose and ears atraumatic Neck: No cervical lymphadenopathy, trachea midline, supple Mouth: no lip lesion, mucus membranes moist Cardiovascular: S1S2 reg, no murmur, positive dorsalis pedis pulse bilateral, no edema Lungs: CTA bilateral, no rhonchi, no rales, no accessory muscle use Abdominal: Protuberant abdomen with caput medusa noted. Fluid wave test positive. No rebound tenderness. No guarding. No abdominal tenderness Ext: muscle strength 5 out of 5 in all 4 extremities grossly, gross muscle atrophy noted on both upper and lower extremities Neuro: CN II-XI grossly intact, no gross focal neuro deficits, no tremors noted Psych: Alert, oriented, appropriate affect Data received today: Pertinent Labs: WBC 2.8, Hgb 7.2, platelet 30, sodium 132, potassium 4.6, BUN 52, creatinine 1.52, glucose range [id number], calcium 8.1 Imaging: N/A Assessment/Plan: This is a Patient is a 63-year-old male with a history of alcoholic liver cirrhosis (on the list for liver transplant), anxiety and depression comes to the ER with concerns for black tarry stools and abnormal lab values. Patient has been consulted for medical management by the internal medicine service while pending transfer to [facility] in [place]. Case was discussed with the Emergency Room provider and decision was made to admit the patient for medical management for the patient with alcoholic liver cirrhosis pending transfer to [facility]. #Suspected Upper GI bleed in the setting of decompensated alcoholic liver cirrhosis and esophageal varices #Symptomatic normocytic anemia #Ascites #Severe thrombocytopenia #Hyperammonemia #Hypoalbuminemia #Hypotension hemoglobin 6.2, hematocrit 19.7, platelet count 37, BUN 66, ammonium 56, albumin 3.0 on admission Platelet count 37 on admission s/p 3 unit of PRBCS and platelets, repeat CBC q8hr continue to monitor Hgb and platelets: target hemoglobin >7 and platelet count > 50,000 Monitor CBC every 6 hours Patient received octreotide 50 mcg IVP once stat in ED Patient received a bolus of half a liter of IV normal saline in ED Patient has a child Brambila class B: Resume oral Bactrim DS 800-160 mg p.o. daily MELD-Na score: 23 points Resume rifaximin 550 mg p.o. twice daily Midodrine 10 mg PO TID. Rocephin 1g IV QD for prophylaxis. Continue with Octreotide infusion IV 50 mcg/hr IR refusing to do paracentesis due to low platelet count and hypotension Patient to be transferred to [facility] for tertiary care Will attempt to look into other sites for transfer Recommended possible transfer at [facility], however patient refused to be transferred there because most of his physicians are at [facility], states he would rather go home. #Coagulopathy secondary to liver cirrhosis PT 16.2, INR 1.6, APTT 26.0, #Hypervolemic hyponatremia secondary to liver cirrhosis Sodium 132 Continue monitor sodium level # NIA on CKD stage IIIb in the setting of UGIB and possible hepatorenal syndrome BUN 66 and creatinine 1.63 on admission No recent baseline for creatinine and GFR Creatinine 0.9 and GFR 88.9 on 09/30/2022 Hold diuretics Repeat BMP Avoid nephrotoxic drugs #Hyperglycemia Serum glucose 200 Accu-Chek Scale insulin Monitor for hypoglycemia Check HbA1c #Elevated total bilirubin likely hepatobiliary etiology Total bili 1.6, AST 25, ALT 19, ALP 59 Continue to monitor Chronic conditions: Hemorrhoids: Resume ProctosolHC 2.5% twice daily as needed Dermatitis: Resume mupirocin 2% ointment topical twice daily. DVT prophylaxis: Mechanical DVT prophylaxis with SCDs GI prophylaxis: None F: PO E: Electrolyte replete as needed N: Heart healthy diet A: Ambulatory at baseline Dictation was produced using [employer] dictation software. Please excuse any grammatical, word or spelling errors. I saw and evaluated the patient during the keller and critical portions of this en counter, and discussed the case in detail with the resident author of this note, I agree with the Assessment and Plan, and my changes, if any, are highlighted below. Hg 7.2 this morning. CBC Q8H ordered. Transfuse if Hg < 7. Rocephin 1g IV QD for prophylaxis. Continue Octreotide drip. Increase Midodrine to 10 mg PO TID. Awaiting transfer to [facility] refusing transfer to another outside hospital. Objective - Vital Signs Vital signs: Vital Signs Temp 98.6 F 07/02/24 06:18 Pulse 72 07/02/24 06:18 Resp 16 07/02/24 06:18 BP 80/63 07/02/24 06:18 Pulse Ox 96 07/02/24 06:18 FiO2 Intake & Output 07/01/24 07/02/24 07/02/24 18:59 06:59 18:59 Intake Total 707 292 Balance 707 292 Intake: Blood Product 707 292 Platelet Pheresis Pas 341 Psoralen Unit [id number] Platelet Pheresis Pas 366 Psoralen Unit [id number] Rc Pheresis 2 As3 Unit 0 292 [id number] - Labs CBC & Chem 7: 07/02/24 05:51 07/02/24 05:51 Labs: Abnormal Lab Results - Last 24 Hours (Table) 06/30/24 07/01/24 07/01/24 Range/Units 11:45 01:49 05:50 WBC (3.8-10.6) k/uL RBC (4.30-5.90) m/uL Hgb (13.0-17.5) gm/dL Hct (39.0-53.0) % RDW (11.5-15.5) % Plt Count (150-450) k/uL Lymphocytes # (1.0-4.8) k/uL Sodium (137-145) mmol/L Potassium (3.5-5.1) mmol/L Carbon Dioxide (22-30) mmol/L BUN (9-20) mg/dL Creatinine (0.66-1.25) mg/dL Glucose (74-99) mg/dL POC Glucose (mg/dL) (70-110) mg/dL Hemoglobin A1c 6.4 H (<=6.0) % Calcium (8.4-10.2) mg/dL Total Bilirubin (0.2-1.3) mg/dL Total Protein (6.3-8.2) g/dL Albumin (3.5-5.0) g/dL Crossmatch See Detail See Detail 07/01/24 07/01/24 07/01/24 Range/Units 07:32 09:26 09:26 WBC 2.9 L (3.8-10.6) k/uL RBC 2.43 L (4.30-5.90) m/uL Hgb 6.9 L* (13.0-17.5) gm/dL Hct 21.7 L (39.0-53.0) % RDW 16.2 H (11.5-15.5) % Plt Count 32 L (150-450) k/uL Lymphocytes # 0.2 L (1.0-4.8) k/uL Sodium 132 L (137-145) mmol/L Potassium 5.2 H (3.5-5.1) mmol/L Carbon Dioxide 19 L (22-30) mmol/L BUN 55 H (9-20) mg/dL Creatinine 1.34 H (0.66-1.25) mg/dL Glucose 204 H (74-99) mg/dL POC Glucose (mg/dL) 140 H (70-110) mg/dL Hemoglobin A1c (<=6.0) % Calcium 7.9 L (8.4-10.2) mg/dL Total Bilirubin 2.7 H (0.2-1.3) mg/dL Total Protein 5.6 L (6.3-8.2) g/dL Albumin 2.7 L (3.5-5.0) g/dL Crossmatch 07/01/24 07/01/24 07/01/24 Range/Units 12:23 16:59 20:43 WBC (3.8-10.6) k/uL RBC (4.30-5.90) m/uL Hgb (13.0-17.5) gm/dL Hct (39.0-53.0) % RDW (11.5-15.5) % Plt Count (150-450) k/uL Lymphocytes # (1.0-4.8) k/uL Sodium (137-145) mmol/L Potassium (3.5-5.1) mmol/L Carbon Dioxide (22-30) mmol/L BUN (9-20) mg/dL Creatinine (0.66-1.25) mg/dL Glucose (74-99) mg/dL POC Glucose (mg/dL) 252 H 140 H 158 H (70-110) mg/dL Hemoglobin A1c (<=6.0) % Calcium (8.4-10.2) mg/dL Total Bilirubin (0.2-1.3) mg/dL Total Protein (6.3-8.2) g/dL Albumin (3.5-5.0) g/dL Crossmatch 07/02/24 07/02/24 07/02/24 Range/Units 01:05 01:05 05:51 WBC 3.0 L (3.8-10.6) k/uL RBC 2.55 L (4.30-5.90) m/uL Hgb 7.4 L (13.0-17.5) gm/dL Hct 22.0 L (39.0-53.0) % RDW 17.5 H (11.5-15.5) % Plt Count 32 L (150-450) k/uL Lymphocytes # 0.3 L (1.0-4.8) k/uL Sodium 132 L 132 L (137-145) mmol/L Potassium (3.5-5.1) mmol/L Carbon Dioxide 20 L (22-30) mmol/L BUN 53 H 52 H (9-20) mg/dL Creatinine 1.42 H 1.52 H (0.66-1.25) mg/dL Glucose 124 H 132 H (74-99) mg/dL POC Glucose (mg/dL) (70-110) mg/dL Hemoglobin A1c (<=6.0) % Calcium 8.1 L 8.1 L (8.4-10.2) mg/dL Total Bilirubin 2.2 H (0.2-1.3) mg/dL Total Protein 5.8 L (6.3-8.2) g/dL Albumin 2.7 L (3.5-5.0) g/dL Crossmatch 07/02/24 Range/Units 05:51 WBC 2.8 L (3.8-10.6) k/uL RBC 2.54 L (4.30-5.90) m/uL Hgb 7.2 L (13.0-17.5) gm/dL Hct 22.0 L (39.0-53.0) % RDW 16.3 H (11.5-15.5) % Plt Count 30 L (150-450) k/uL Lymphocytes # (1.0-4.8) k/uL Sodium (137-145) mmol/L Potassium (3.5-5.1) mmol/L Carbon Dioxide (22-30) mmol/L BUN (9-20) mg/dL Creatinine (0.66-1.25) mg/dL Glucose (74-99) mg/dL POC Glucose (mg/dL) (70-110) mg/dL Hemoglobin A1c (<=6.0) % Calcium (8.4-10.2) mg/dL Total Bilirubin (0.2-1.3) mg/dL Total Protein (6.3-8.2) g/dL Albumin (3.5-5.0) g/dL Crossmatch
[2024-07-02 16:49] LABS: Glucose,Whole Blood 165 mg/dL (70-110)
[2024-07-02 18:38] LABS: Anisocytosis Slight; HCT 24.4 % (39.0-53.0); HGB 7.7 gm/dL (13.0-17.5); Hypochromasia Marked; MCH 27.8 pg (25.0-35.0); MCHC 31.3 g/dL (31.0-37.0); MCV 88.7 fL (80.0-100.0); Mean Platelet Volume 9.4; Poikilocytosis Slight; RBC 2.75 m/uL (4.30-5.90); RDW 16.3 % (11.5-15.5); WBC 3.6 k/uL (3.8-10.6)
[2024-07-02 18:39] LABS: Platelet Count 38 k/uL (150-450)
[2024-07-02 20:07] LABS: Glucose,Whole Blood 198 mg/dL (70-110)
[2024-07-03 03:50] VITALS: BP 101/63; PULSE 54; RESP 18; TEMP 98.2
== END 2024-07-03 03:46 | disposition other institution (70) ==
LOC: EC 10:16
DX: K92.2 Gastrointestinal hemorrhage, unspecified (principal); D64.9 Anemia, unspecified; K92.1 Melena; I95.9 Hypotension, unspecified; R41.82 Altered mental status, unspecified; Z87.891 Personal history of nicotine dependence; Z91.041 Radiographic dye allergy status; Z91.013 Allergy to seafood
CPT/HCPCS: 99291 ×2; 96376 ×3; 96361 ×2; 36430 ×2; 96365 ×2; 96367 ×2; 96366 ×4; 36415 ×2; 93005; 86900 ×2; 86901 ×2; 86902 ×2; 80053 ×2; 82140; 83605; 83735; 84100; 84484; 85025 ×2; 85610; 85730; 86850 ×2; 86920 ×2; 86870 ×2; 86880 ×2; 82272; 83036; 71046; P9016 ×2; P9073 ×2; J2354 ×3; J0696 ×2